=== PATIENT | female | born 1955 | race Caucasian/White ===

== ENCOUNTER 2017-01-06 14:40 | Emergency (ER) | payer MEDICARE ==
[~2017-01-06] VITALS: Ht 160 cm; Wt 83.0 kg
[~2017-01-06 14:40] MED LIST: CLAR5TAB PO; LEVO.1 PO; METF1000 PO; METH500T3 PO; PANT40TA3 PO; TRAM50TA PO
[2017-01-06 14:43] VITALS: BP 189/91; PULSE 95; RESP 20; TEMP 98.8; O2SAT 97
--- NOTE | 2017-01-06 14:51 | PD ---
Physical Exam Time Seen by Provider: 14:50 Narrative 61yo F c/o chest pain/pressure and SOB since Tuesday. Sent by communication center operator. Hx of asthma. Denies hemoptysis. Denies hx of DVT/PE. Patient seen in triage. Awaiting bed placement. VS reviewed. Data Data Last Documented VS Vital Signs Date Time Temp Pulse Resp B/P Pulse Ox O2 Delivery O2 Flow Rate FiO2 01/06/17 14:43 98.8 95 20 189/91 97 Orders Electrocardiogram (01/06/17 14:44) Complete Blood Count With Diff (01/06/17 14:44) Basic Metabolic Panel (Bmp) (01/06/17 14:44) Ckmb (Isoenzyme) Profile (01/06/17 14:44) Troponin I (01/06/17 14:44) Chest, Single Ap (01/06/17 14:44) Iv Access Insert/Monitor (01/06/17 14:44) Ecg Monitoring (01/06/17 14:44) Oxygen Administration (01/06/17 14:44) Oximetry (01/06/17 14:44) MDM Supervised Visit with IAN: Glenys Angel January 06, 2017 14:51
--- NOTE | 2017-01-06 15:21 | RADRPT ---
EXAM DATE/TIME: 01/06/2017 15:15 [facility] COMPARISON: No previous studies available for comparison. INDICATIONS : Chest pain and short of breath for 5 days. MEDICAL HISTORY : Carcinoma, pancreas. SURGICAL HISTORY : Splenectomy. ENCOUNTER: Initial ACUITY: 4 - 6 days PAIN SCORE: 9/10 LOCATION: Bilateral chest FINDINGS: PA and lateral views of the chest demonstrate the lungs to be symmetrically aerated without evidence of mass, infiltrate or effusion. The cardiomediastinal contours are unremarkable. Osseous structure s are intact. CONCLUSION: Normal examination. Clem Calles MD on January 06, 2017 at 15:19 Board Certified Radiologist. This report was verified electronically.
[2017-01-06] MEDS ORDERED: SODIUM CHLOR 0.9% 1000 ML INJ 1,000 ML IV SCH (16:03)
[2017-01-06] MEDS ORDERED: ONDANSETRON HCL 4 MG/2 ML VIAL IVP ONE (16:15)
[2017-01-06] MEDS ORDERED: LIDOCAINE VISCOUS 2% SOLN 15 ML UDC PO ONE (16:15)
[2017-01-06] MEDS ORDERED: PANTOPRAZOLE SODIUM 40 MG VIAL IVP ONE (16:15)
[2017-01-06] MEDS ORDERED: SODIUM CHLORIDE 0.9% FLUSH 10 ML FLUSH IV FLUSH PRN (16:15)
[2017-01-06] MEDS ORDERED: ALUMINUM/MAGNESIUM/SIMETH 30 ML CUP PO ONE (16:15)
[2017-01-06] MEDS ORDERED: MORPHINE SULFATE 4 MG/ML INJ IV PUSH ONE (16:15)
--- NOTE | 2017-01-06 17:20 | PD ---
HPI Chief Complaint: Chest Pain Time Seen by Provider: 16:00 Travel History International Travel<30 days: No Contact w/Intl Traveler<30days: No Traveled to known affect area: No History of Present Illness HPI 61-year-old female presents the emergency department with 4 day history of pleuritic chest pain radiating to her back. Patient has had lower extremity cramping as well. Patient has history of pancreatic cancer surgically removed, and followed by Dr. Barrios, and asthma for which she sees a economic development specialist. Patient was referred to the ED by her economic development specialist with her history of pleuritic chest pain for the past 4 days. Denies fever, chills, productive cough, nausea, vomiting, or diarrhea. Pain is constant and not significantly worse with exertion or with eating. She has no urinary symptoms. She is allergic to Compazine. PFSH Past Medical History Cancer: Yes (pancreatic cancer) Diabetes: Yes Patient Takes Glucophage: Yes Fibromyalgia: Yes Herniated Disk: Yes Hypertension: Yes Neurologic: Yes (neuropathy) Respiratory: Yes (asthma) Triglycerides - High: Yes Tetanus Vaccination: > 5 Years Influenza Vaccination: No ?: Not : 3 Para: 3 Past Surgical History Appendectomy: Yes Cholecystectomy: Yes Hysterectomy: Yes Social History Alcohol Use: Yes (occ) Tobacco Use: No Substance Use: No Allergies-Medications (Allergen,Severity, Reaction): Coded Allergies: Compazine (Verified Allergy, Unknown, 01/06/17) Reported Meds & Prescriptions Reported Meds & Active Scripts Active Reported Desloratadine 5 Mg Tab 5 Mg PO DAILY Levothyroxine (Levothyroxine Sodium) 100 Mcg Tab 100 Mcg PO DAILY Tramadol (Tramadol HCl) 50 Mg Tab 50-100 Mg PO BID PRN Pantoprazole (Pantoprazole Sodium) 40 Mg Tab 40 Mg PO DAILY Robaxin (Methocarbamol) 500 Mg Tab 500 Mg PO QID PRN Breo Ellipta Inh (Fluticasone/Vilanterol) 100-25 Mcg/Act Inh 1 Puff INH DAILY PRN Use daily at the same time. [Metformin] Review of Systems Except as stated in HPI: all other systems reviewed are Neg General / Constitutional: No: Fever Eyes: No: Visual changes HENT: No: Headaches Cardiovascular: Positive: Chest Pain or Discomfort, No: Irregular Rhythm, Tachycardia, Diaphoresis, Syncope, Dyspnea on exertion, Edema Respiratory: Positive: Pleuritic Pain, No: Cough, Shortness of Breath, Wheezing, Sneezing Gastrointestinal: No: Nausea, Vomiting, Diarrhea, Abdominal Pain Genitourinary: No: Dysuria Musculoskeletal: Positive: Cramping, No: Edema, Pain Skin: No Rash Neurologic: No: Weakness Psychiatric: No: Depression Endocrine: No: Polydipsia Hematologic/Lymphatic: No: Easy Bruising Physical Exam Narrative GENERAL: Patient appears in moderate distress. SKIN: Warm and dry. Normal color. Normal turgor. HEAD: Atraumatic. Normocephalic. EYES: Pupils equal and round. No scleral icterus. No injection or drainage. ENT: No nasal bleeding or discharge. Mucous membranes pink and moist. Pharynx is clear. Airway is patent. NECK: Trachea midline. No JVD. Supple nontender. CARDIOVASCULAR: Regular rate and rhythm. No murmurs gallops or rubs. RESPIRATORY: No accessory muscle use. Clear to auscultation. Breath sounds equal bilaterally. Patient has pain with palpation along the anterior chest wall. GASTROINTESTINAL: Abdomen soft, mild to moderate epigastric and right upper quadrant tenderness, nondistended. Hepatic and splenic margins not palpable. No CVA tenderness. MUSCULOSKELETAL: Extremities without clubbing, cyanosis, or edema. No obvious deformities. Both lower extremities are tender with palpation in the calf with positive Homans sign present. Strength is intact bilaterally. Neurovascular exam is unremarkable. NEUROLOGICAL: Awake and alert. No obvious cranial nerve deficits. Motor grossly within normal limits. Five out of 5 muscle strength in the arms and legs. Normal speech. PSYCHIATRIC: Appropriate mood and affect; insight and judgment normal. Data Data Last Documented VS Vital Signs Date Time Temp Pulse Resp B/P Pulse Ox O2 Delivery O2 Flow Rate FiO2 01/06/17 20:01 64 18 195/85 97 01/06/17 18:10 Room Air 01/06/17 14:43 98.8 Orders Electrocardiogram (01/06/17 14:44) Complete Blood Count With Diff (01/06/17 14:44) Ckmb (Isoenzyme) Profile (01/06/17 14:44) Troponin I (01/06/17 14:44) Iv Access Insert/Monitor (01/06/17 14:44) Ecg Monitoring (01/06/17 14:44) Oxygen Administration (5/18/17 14:44) Oximetry (01/06/17 14:44) Chest, Pa & Lat (01/06/17 14:44) Lipase (01/06/17 16:03) Lactic Acid (01/06/17 16:03) Urinalysis - C+S If Indicated (01/06/17 16:03) NPO (01/06/17 16:03) Morphine Inj (Morphine Inj) (01/06/17 16:15) Ondansetron Inj (Zofran Inj) (01/06/17 16:15) Pantoprazole Inj (Protonix Inj) (01/06/17 16:15) Sodium Chlor 0.9% 1000 Ml Inj (Ns 1000 M (01/06/17 16:03) Sodium Chloride 0.9% Flush (Ns Flush) (01/06/17 16:15) Al-Mag Hy-Si 40-40-4 Mg/Ml Liq (Mag-Al P (01/06/17 16:15) Lidocaine 2% Viscous (Xylocaine 2% Visco (01/06/17 16:15) Comprehensive Metabolic Panel (01/06/17 16:03) Us Leg Venous Doppler Bilat (01/06/17 16:03) CKMB (01/06/17 14:44) CKMB% (01/06/17 14:44) Ventilation & Perfusion Scan (01/06/17 ) Ketorolac Inj (Toradol Inj) (01/06/17 19:45) Dexamethasone Inj (Decadron Inj) (01/06/17 22:30) Labs Laboratory Tests Test 01/06/17 01/06/17 01/06/17 14:44 16:25 17:00 Total Creatine Kinase 119 U/L Creatine Kinase MB 0.9 NG/ML Troponin I LESS THAN 0.02 NG/ML Urine Color LIGHT-YELLOW Urine Turbidity CLEAR Urine pH 7.5 Urine Specific [place] 1.006 Urine Protein NEG mg/dL Urine Glucose (UA) NEG mg/dL Urine Ketones NEG mg/dL Urine Occult Blood NEG Urine Nitrite NEG Urine Bilirubin NEG Urine Urobilinogen LESS THAN 2.0 MG/DL Urine Leukocyte Esterase NEG Urine RBC 2 /hpf Urine WBC LESS THAN 1 /hpf Urine Squamous Epithelial 1 /hpf Cells Urine Bacteria OCC /hpf Microscopic Urinalysis Comment CULT NOT INDICATED Sodium Level 140 MEQ/L Potassium Level 3.9 MEQ/L Chloride Level 102 MEQ/L Carbon Dioxide Level 25.7 MEQ/L Anion Gap 12 MEQ/L Blood Urea Nitrogen 8 MG/DL Creatinine 0.68 MG/DL Estimat Glomerular Filtration 88 ML/MIN Rate Random Glucose 109 MG/DL Lactic Acid Level 0.9 mmol/L Calcium Level 9.6 MG/DL Total Bilirubin 0.4 MG/DL Aspartate Amino Transf 32 U/L (AST/SGOT) Alanine Aminotransferase 40 U/L (ALT/SGPT) Alkaline Phosphatase 113 U/L Total Protein 8.2 GM/DL Albumin 3.8 GM/DL Lipase 141 U/L White Blood Count 16.0 TH/MM3 Red Blood Count 4.93 MIL/MM3 Hemoglobin 14.5 GM/DL Hematocrit 44.3 % Mean Corpuscular Volume 89.9 FL Mean Corpuscular Hemoglobin 29.4 PG Mean Corpuscular Hemoglobin 32.7 % Concent Red Cell Distribution Width 14.6 % Platelet Count 393 TH/MM3 Mean Platelet Volume 9.2 FL Neutrophils (%) (Auto) 55.7 % Lymphocytes (%) (Auto) 33.2 % Monocytes (%) (Auto) 7.2 % Eosinophils (%) (Auto) 2.9 % Basophils (%) (Auto) 1.0 % Neutrophils # (Auto) 8.9 TH/MM3 Lymphocytes # (Auto) 5.3 TH/MM3 Monocytes # (Auto) 1.2 TH/MM3 Eosinophils # (Auto) 0.5 TH/MM3 Basophils # (Auto) 0.2 TH/MM3 CBC Comment AUTO DIFF Differential Total Cells 100 Counted Neutrophils % (Manual) 54 % Band Neutrophils % 3 % Lymphocytes % 28 % Monocytes % 11 % Eosinophils % 4 % Neutrophils # (Manual) 9.1 TH/MM3 Differential Comment FINAL DIFF MANUAL Platelet Estimate NORMAL Platelet Morphology Comment NORMAL Spherocytes 1+ Target Cells 1+ MDM Medical Decision Making Medical Screen Exam Complete: Yes Emergency Medical Condition: Yes Medical Record Reviewed: Yes Differential Diagnosis Pleuritic chest pain. Epigastric pain. Right upper quadrant pain. Lower extremity pain. DVT. Possible PE. GERD. Pancreatitis. Narrative Course Patient is medically stable at time of exam. Labs ordered including CBC, CMP, lipase, lactic acid. Coagulation studies, analysis. Chest x-ray shows no acute process. EKG shows Ultrasound of both lower extremities showed no acute DVT. Radiologist. CTA is ordered. CBC shows slight leukocytosis of 16.0. CMP is unremarkable, lactic acid is 0.9. Lipase is 141. Urinalysis is unremarkable. Patient is Morphine 4 mg IV as well as 40 MG IV PANTOPRAZOLE 40 MG IV AND GI COCKTAIL. Patient is given thousand mL of normal saline bolus. 1930 hrs. patient is reassessed and felt to have no improvement in her pain. Patient reports that she has allergy to IV contrast, and the patient was discussed with Dr. Aceves who took over for Dr. Faustin at 1900 hrs., and he recommended a VQ scan rather than CT. Patient is given 30 mg Toradol IV for pain. Patient did have some relief with the Toradol IV, and VQ scan was low suspicion for PE. Patient is felt to have chest wall pain similar to costochondritis. Patient is given 10 mg Decadron IV. Patient will be continued on prednisone taper pack as prescribed. Patient is also given Lortab 5/325 one to 2 tabs every 6 hours when necessary pain #20. Diagnosis Primary Impression: Anterior chest wall pain Referrals: Primary Care Physician Patient Instructions: Costochondritis (ED), General Instructions, Narcotic given in the ED Additional Instructions: Patient is given 30 mg Toradol IV for pain. Patient did have some relief with the Toradol IV, and VQ scan was low suspicion for PE. Patient is felt to have chest wall pain similar to costochondritis. Patient is given 10 mg Decadron IV. Patient will be continued on prednisone taper pack as prescribed. Patient is also given Lortab 5/325 one to 2 tabs every 6 hours when necessary pain #20. Patient should follow with her primary care physician in the next several days. Patient should return the emergency Department with worsening symptoms if necessary. Med/Other Pt SpecificInfo: Prescription(s) given Disposition: DISCHARGE HOME Condition: Stable Jun Bird January 06, 2017 17:20
[2017-01-06 17:38] LABS: BACTERIA, URINE OCC /hpf; BLOOD, URINE NEG (NEG); GLUCOSE,URINE NEG (NEG); KETONE, URINE NEG (NEG); NITRITE,URINE NEG (NEG); PH, URINE 7.5 (5.0-8.5); SQUAMOUS EPITHELIAL CELL URINE 1 /hpf (0-5); URINE COLOR LIGHT-YELLOW (YELLW/STRAW)
[2017-01-06 17:44] LABS: COMMENT (UR) CULT NOT INDICATED; CULTURE IF INDICATED CULT NOT INDICATED
[2017-01-06 17:53] LABS: ALKALINE PHOSPHATASE 113 U/L (45-117); ALT (GPT) 40 U/L (10-53); ANION GAP 12 MEQ/L (5-15); AST (GOT) 32 U/L (15-37); BICARBONATE 25.7 MEQ/L (21.0-32.0); BLOOD UREA NITROGEN 8 MG/DL (7-18); CHLORIDE 102 MEQ/L (98-107); GLOMERULAR FILTRATION RATE 88 ML/MIN (>89); POTASSIUM 3.9 MEQ/L (3.5-5.1); SODIUM (NA) 140 MEQ/L (136-145); TOTAL BILIRUBIN ADULT 0.4 MG/DL (0.2-1.0)
--- NOTE | 2017-01-06 18:04 | RADRPT ---
EXAM DATE/TIME: 01/06/2017 17:13 [facility] COMPARISON: No previous studies available for comparison. INDICATIONS : Bilateral leg pain. MEDICAL HISTORY : Carcinoma, pancreas. Peripheral vascular disease. Neuorpathy. Hyperlipidemia. HTN. Asthma. Fibromya lgia. Herniated disk. Diabetes. SURGICAL HISTORY : Cholecystectomy.Hysterectomy. Pancreatic cancer removed. Partial splenectomy. ENCOUNTER: Initial ACUITY: 2 day PAIN SCORE: 10/10 LOCATION: Bilateral leg. TECHNIQUE: Venous ultrasound of the left and right leg was performed from the inguinal ligament to the proximal calf. Real-time, color Doppler and spectral tracing, compression and augmentation techniques were us ed. FINDINGS: RIGHT LEG: There is normal compressibility of the deep venous system from the inguinal region to the proximal ca lf. No echogenic clot is seen in the lumen of the common femoral, femoral, popliteal, and posterior tibial veins. There is a normal response of the venous system to proximal and distal augmentation an d respiration. LEFT LEG: There is normal compressibility of the deep venous system from the inguinal region to the proximal ca lf. No echogenic clot is seen in the lumen of the common femoral, femoral, popliteal, and posterior tibial veins. There is a normal response of the venous system to proximal and distal augmentation an d respiration. CONCLUSION: Normal examination. Clem Calles MD on January 06, 2017 at 18:03 Board Certified Radiologist. This report was verified electronically.
[2017-01-06 18:10] VITALS: BP 174/73; PULSE 61; O2SAT 96
[2017-01-06 18:12] LABS: AUTOMATED NEUTROPHIL # 8.9 TH/MM3 (1.8-7.7); BASOPHIL # 0.2 TH/MM3 (0-0.2); EOSINOPHIL # 0.5 TH/MM3 (0-0.4); EOSINOPHIL % 2.9 % (0.0-4.0); HEMATOCRIT 44.3 % (35.0-46.0); LYMPH % 33.2 % (9.0-44.0); LYMPHOCYTE # 5.3 TH/MM3 (1.0-4.8); MEAN CELL VOLUME 89.9 FL (80.0-100.0); MEAN CORPUSCULAR HEMOGLOBIN 29.4 PG (27.0-34.0); MEAN CORPUSCULAR HGB CONC 32.7 % (32.0-36.0); MONO % 7.2 % (0.0-8.0); NEUT % 55.7 % (16.0-70.0); PLATELET COUNT 393 TH/MM3 (150-450); RED BLOOD COUNT 4.93 MIL/MM3 (4.00-5.30); RED CELL DISTRIBUTION WIDTH 14.6 % (11.6-17.2)
[2017-01-06 18:14] LABS: HEMO FLAGS AUTO DIFF
[2017-01-06 18:51] LABS: CREATINE KINASE 119 U/L (26-192)
[2017-01-06 18:54] LABS: BANDS 3 % (0-6); EOSINOPHILS 4 % (0-4); NEUTROPHIL # MANUAL DIFF 9.1 TH/MM3 (1.8-7.7); POLYS (SEG NEUTROPHILS) 54 % (16-70); WBC DIFF SAMPLE 100
[2017-01-06 18:56] LABS: PLATELET ESTIMATE SMEAR NORMAL (NORMAL); PLATELET MORPHOLOGY NORMAL (NORMAL); SCAN/DIFF FINAL DIFF MANUAL; SPHEROCYTES 1+ (NORMAL); TARGET CELLS 1+ (NORMAL)
[2017-01-06 19:03] LABS: CKMB 0.9 NG/ML (0.5-3.6)
[2017-01-06] MEDS ORDERED: KETOROLAC TROMETHAMINE 30 MG/ML (IVP) VIAL IV PUSH ONE (19:45)
[2017-01-06 20:01] VITALS: BP 195/85; PULSE 64; RESP 18; O2SAT 97
[2017-01-06] MEDS ORDERED: FLUT1INH INH (20:28)
[2017-01-06] MEDS ORDERED: DESL5TAB4 PO (20:28)
[2017-01-06] MEDS ORDERED: LEVO100T5 PO (20:28)
[2017-01-06] MEDS ORDERED: PANT40TA3 PO (20:28)
[2017-01-06] MEDS ORDERED: TRAM50TA PO (20:28)
[2017-01-06] MEDS ORDERED: METFORMIN (20:28)
[2017-01-06] MEDS ORDERED: ROBA500T PO (20:28)
[2017-01-06 21:30] VITALS: BP 141/67; PULSE 60; RESP 18; O2SAT 97
--- NOTE | 2017-01-06 22:16 | RADRPT ---
EXAM DATE/TIME: 01/06/2017 21:43 [facility] COMPARISON: CHEST PA & LAT, January 06, 2017, 15:15. INDICATIONS : Shortness of breath with chest pain for four days. DOSE: 8.7 mCi Tc99m MAA IV 0.80 mCi Tc99m DTPA aerosol MEDICAL HISTORY : Carcinoma, pancreas. Diabetes mellitus type 2. SURGICAL HISTORY : Appendectomy. Hysterectomy. Cholecystectomy. ENCOUNTER: Initial ACUITY: 4 - 6 days PAIN SCALE: 5/10 LOCATION: chest TECHNIQUE: Following five minutes of tidal breathing of DTPA aerosol, planar images of the lungs were performed in eight projections. The patient was then injected with MAA, and eight-view perfusion scan was perf ormed. FINDINGS: There is a homogeneous pattern of aerosol delivery to the periphery of both lungs. No focal ventilat ory defects are seen. The perfusion lung scan demonstrates a homogenous pattern of uptake in both lungs. No segmental or s ubsegmental defects are seen. CONCLUSION: Low probability for pulmonary embolism.. José Miguel Archer MD FACR on January 06, 2017 at 22:14 Board Certified Radiologist. This report was verified electronically.
[2017-01-06] MEDS ORDERED: PRED10PA2 PO (22:29)
[2017-01-06] MEDS ORDERED: HYDR-3533 PO (22:29)
[2017-01-06 22:30] VITALS: BP 140/66; PULSE 66; RESP 18; O2SAT 97
[2017-01-06] MEDS ORDERED: DEXAMETHASONE SOD PHOS 20 MG/5 ML VIAL IV PUSH ONE (22:30)
[2017-01-06 23:41] VITALS: BP 158/88
--- NOTE | 2017-01-07 21:46 | EKG ---
Date Performed: 01/06/2017 Time Performed: 15:24:15 PTAGE: 61 years EKG: Sinus rhythm NORMAL ECG NO PREVIOUS TRACING DOCTOR: Anthony Barnard Interpretating Date/Time 01/07/2017 21:45:12
== END 2017-01-07 00:24 | disposition home or self-care (01) ==
LOC: NEPC 14:40 → MERGE 14:40 → NEPC 01-07 00:24
DX: R07.89 Other chest pain (principal); R25.2 Cramp and spasm; D72.829 Elevated white blood cell count, unspecified; E11.9 Type 2 diabetes mellitus without complications; I10 Essential (primary) hypertension; E78.1 Pure hyperglyceridemia; Z79.84 Long term (current) use of oral hypoglycemic drugs; Z85.07 Personal history of malignant neoplasm of pancreas; Z87.09 Personal history of other diseases of the respiratory system; Z87.39 Personal history of other diseases of the musculoskeletal system and connective tissue; Z86.69 Personal history of other diseases of the nervous system and sense organs
CPT/HCPCS: 71020; 78582; 80053; 81001; 82550; 82552; 83605; 83690; 84484; 85007; 85027; 93005; 93970; 96374; 96375; 99285; A9540; A9567; C9113; J1100; J1885; J2270; J2405; J7030

== ENCOUNTER 2017-07-01 08:02 | Inpatient (IN) | payer MEDICARE ==
[~2017-07-01] VITALS: Ht 157.5 cm; Wt 83.5 kg
[2017-07-01] VITALS (8 sets, daily range): BP systolic 147–173; BP diastolic 71–99; PULSE 65–100; RESP 18–22; TEMP 98–98.7; O2SAT 94–99
[~2017-07-01 08:02] MED LIST changes: +DESL5TAB4 PO; +FLUT1INH INH; +HYDR-3533 PO; +LEVO100T5 PO; +METFORMIN; +PRED10PA2 PO; +ROBA500T PO
[2017-07-01] MEDS: NS 1000P @30 MLS/HR (KVO) IV SCH (09:00)
[2017-07-01] MEDS ORDERED: methylPREDNISolone SOD SUCC 125 MG/2 ML VIAL IV PUSH ONE (09:00)
[2017-07-01] MEDS ORDERED: FAMOTIDINE 20 MG/2 ML VIAL IV PUSH ONE (09:00)
[2017-07-01] MEDS ORDERED: diphenhydrAMINE HCL 50 MG/ML VIAL IV PUSH ONE ×2 (09:00→15:15)
[2017-07-01 09:48] LABS: BASOPHIL # 0.2 TH/MM3 (0-0.2); BASOPHIL % 1.5 % (0.0-2.0); EOSINOPHIL # 0.4 TH/MM3 (0-0.4); EOSINOPHIL % 3.3 % (0.0-4.0); HEMATOCRIT 43.3 % (35.0-46.0); HEMO FLAGS DIFF FINAL; LYMPH % 33.2 % (9.0-44.0); LYMPHOCYTE # 4.2 TH/MM3 (1.0-4.8); MEAN CELL VOLUME 90.3 FL (80.0-100.0); MEAN CORPUSCULAR HEMOGLOBIN 30.6 PG (27.0-34.0); MEAN CORPUSCULAR HGB CONC 33.8 % (32.0-36.0); MONO % 7.6 % (0.0-8.0); NEUT % 54.4 % (16.0-70.0); PLATELET COUNT 384 TH/MM3 (150-450); RED BLOOD COUNT 4.79 MIL/MM3 (4.00-5.30); RED CELL DISTRIBUTION WIDTH 14.7 % (11.6-17.2); WHITE BLOOD COUNT 12.8 TH/MM3 (4.0-11.0)
[2017-07-01] MEDS ORDERED: CLAR10CA3 PO (09:49)
[2017-07-01] MEDS ORDERED: VITATAB43 PO (09:49)
[2017-07-01] MEDS ORDERED: GABA300C5 PO (09:49)
[2017-07-01] MEDS ORDERED: LEVO75TA3 PO (09:49)
[2017-07-01] MEDS ORDERED: NIAC500T5 PO (09:49)
[2017-07-01] MEDS ORDERED: DULO1CAP2 PO (09:49)
[2017-07-01] MEDS ORDERED: CALC1TAB12 PO (09:49)
[2017-07-01] MEDS ORDERED: ALBUAER3 INH (09:49)
[2017-07-01] MEDS ORDERED: TIOT1AER2 INH (09:49)
[2017-07-01] MEDS ORDERED: benadryl P-ARTICULR (09:49)
[2017-07-01] MEDS ORDERED: NITR1SUB3 SL (09:49)
[2017-07-01 10:00] LABS: APTT (PATIENT) 26.8 SEC (24.3-30.1); PROTHROMBIN TIME - PATIENT 10.5 SEC (9.8-11.6)
[2017-07-01 10:06] LABS: BICARBONATE 27.6 MEQ/L (21.0-32.0)
[2017-07-01 10:08] LABS: POTASSIUM 4.2 MEQ/L (3.5-5.1)
[2017-07-01] MEDS ORDERED: diphenhydrAMINE HCL 50 MG/ML VIAL ONE (12:44)
[2017-07-01] MEDS ORDERED: FAMOTIDINE 20 MG/2 ML VIAL ONE (12:44)
[2017-07-01] MEDS ORDERED: methylPREDNISolone SOD SUCC 125 MG/2 ML VIAL ONE (12:44)
[2017-07-01] MEDS ORDERED: HEPARIN-NS/PF INJ 500 ML ONE (12:57)
[2017-07-01] MEDS ORDERED: NITROGLYCERIN INJ 5 ML ONE (12:58)
[2017-07-01] MEDS ORDERED: VERAPAMIL HCL 5 MG/2 ML VIAL ONE (12:58)
[2017-07-01] MEDS ORDERED: MIDAZOLAM HCL 2 MG/2 ML VIAL ONE (12:58)
[2017-07-01] MEDS ORDERED: HEPARIN SODIUM - IV 10,000 UNITS/10 ML VIAL ONE (12:58)
[2017-07-01] MEDS ORDERED: hydrALAZINE HCL 20 MG/ML VIAL ONE (13:22)
[2017-07-01] MEDS ORDERED: LABETALOL HCL 100 MG/20 ML VIAL ONE (13:30)
--- NOTE | 2017-07-01 14:21 | CATHPROC ---
[facility] HIS Report Study Information Study Number Admission Scheduled Start Study Start [id number] Jul 01 2017 8:02AM 07/01/2017 Jul 01 2017 12:43PM Boss Service Cardiac Catheterization Admit Source Facility Department Other [facility] - Scudding Inspector Physician and Clinical Staff Initial Ronal Buckley Varnish Melter Sophie Tejeda RN Varnish Melter Mari Jackson BSRN Recorder Brandon Aldrich,RT(R) ScrJoaquina ColesRT(R) (BS) Procedures Performed Procedure Location (Site) Vessel Name Coronary Angiograms LCA Left Coronary Coronary Angiograms RCA Right Coronary L Heart Cath Wire insertion Radial (right) Radial Art. Equipment Time Painter Sign Maintenance Description Size Mfg Part Number Used/Scraped TRANSDUCER, TRUWAVE [id number] 13:01 Smartaxi * Used W/STOCKCOCK *[id number] *[id number] *[id number] 13:01 Ravn PACK, CCL CUSTOM * Used *[id number] 13:01 Ravn SUPPORT, ARTERIAL ADULT [id number] *[id number] Used BAND, RADIAL COMPRESSION TR [id number] 14:01 [employer]ron[employer] MEDICAL 24CM Used SHORT 24 *[id number] 13:01 [employer] WIRE, EXCHANGE 260CM 3MMJ 260CM Used *[id number] 13:01 NAMIC MANIFOLD, 4 PORT * Used *[id number] 13:01 NYCOMED OMNIPAQUE, 350 MG, 150ML 150ML [id number] Used [id number] 13:01 [employer] MED[employer] BLANKET,WARM AIR CCL * Used *[id number] SHEATH, FR6 TRANSRADIAL [id number] 13:01 VENNCOMM FR 6 Used SLENDER 10CM *[id number] History: Current Medications Medication Dosage/Unit Route Frequency Last Date/Time Taken Glucophage History: Allergies Allergy Reaction No Known Allergies Compazine prochlorperazine morphine Hives latex Hives shellfish derived lock jaw isosorbide History: Risk Factors Family History of Hypertension Dyslipidemia Previous MN Previous Heart Failure Premature CAD Yes Yes No No No Prior Valve Prior PCI Prior CABG Surgery No No No Cerebrovascular Peripheral Artery Chronic Lung On Dialysis Diabetes Diabetes Therapy Disease Disease Disease No No Yes Yes Yes Oral History: Symptoms/Diagnosis Selection Items Angina-unstable Chest pain History: Stress Tests Stress or Imaging Studies Performed Yes Standard Exercise Stress Test No Stress Echo No Stress Test SPECT Stress Test SPECT Result Yes Negative Stress Test CMR No Cardiac CTA Coronary Calcium Score No No History: Other Disease Selection Items HTN History: Other Current Smoker No Labs Hgb (g/dl) Hct (%) RBC (MIL/MM3) WBC (l/cumm) Platelets (thousands) 11.60-17.00 35.00-51.00 4.00-5.90 4.00-11.00 150.00-450.00 14.6 43.3 4.7 12.8 384 Glucose (mg/dl) BUN (mg/dl) Creatinine (mg/dl) BUN:Creatinine (1:x) 74.00-106.00 7.00-18.00 0.50-1.30 10.00-20.00 211 11 0.7 15.7 Na (meq/l) K (meq/l) Cl (meq/l) CO2 (mmol/L) Ca (mg/dl) 136.00-145.00 3.50-5.10 98.00-107.00 21.00-32.00 8.50-10.10 136 4.2 101 27.6 8.9 PT (sec) PTT (sec) INR (PTT:PT) 9.80-11.60 24.30-30.10 0.90-1.10 10.5 26.8 1 CPK-MB (ng/ML) 0.50-3.60 Not Drawn Medication Medication Total Dose (Bolus/Oral) Medication Total Dosage/Unit 1% XYLOCAINE 5 mL BENADRYL 25 mg FENTANYL 25 mcg HYDRALAZINE 10 mg LABETOLOL 10 mg PEPCID 20 mg RADIAL COCKTAIL 5 mL (Bolus) SOLU-MEDROL 125 mg VERSED 1 mg Medications (Bolus/Oral) Medication Time Given Dosage/Unit Administered By Reason 07/01/2017 12:49:13 SOLU-MEDROL 125 mg Sophie Tejeda PM 125 mg SOLU-MEDROL given in lab by Sophie Tejeda RN in Left Antecubital via Peripheral IV. 07/01/2017 12:54:15 BENADRYL 25 mg Sophie Tejeda PM 25 mg BENADRYL given in lab by Sophie Tejeda, EARLINE via Peripheral IV. PEPCID 07/01/2017 1:02:14 PM 20 mg Sophie Tejeda 20 mg PEPCID given in lab by Sophei Tejeda, RN in Left Antecubital via Peripheral IV. 1% XYLOCAINE 07/01/2017 1:11:21 PM 5 mL Ronal Aceves 5 mL 1% XYLOCAINE given in lab by Ronal Aceves in Right Radial via Subcutaneous. VERSED 07/01/2017 1:11:23 PM 0.5 mg Rittenour, Mari 0.5 mg VERSED given in lab by Mari Jackson BSRN in Left Antecubital via Peripheral IV. FENTANYL 07/01/2017 1:11:25 PM 25 mcg Renetta, Mari 25 mcg FENTANYL given in lab by Mari Jackson BSRN in Left Antecubital via Peripheral IV. Ntg 200mcg Verapamil 2.5mg Heparin RADIAL COCKTAIL 07/01/2017 1:14:17 PM 5 mL (Bolus) Ronal Aceves 2000U 5 mL (Bolus) RADIAL COCKTAIL given in lab by Ronal Aceves via Radial. Using [Solution Name]. R damaris: Ntg 200mcg Verapamil 2.5mg Heparin 3300U. HYDRALAZINE 07/01/2017 1:23:23 PM 10 mg Rittenour, Mari 10 mg HYDRALAZINE given in lab by Mari Jackson BSRN in Left Antecubital via Peripheral IV. VERSED 07/01/2017 1:26:31 PM 0.5 mg Rittenour, Mari 0.5 mg VERSED given in lab by Mari Jackson BSRN in Left Antecubital via Peripheral IV. LABETOLOL 07/01/2017 1:31:27 PM 10 mg Rittenour, Mari 10 mg LABETOLOL given in lab by Mari Jackson BSRN in Left Antecubital via Peripheral IV. Medication (Drip) Medication Time Given Dosage/Unit Concentration/Unit Diluent (ml) Solution 07/01/2017 12:50:38 IV Solutions 0 mL (IV) 500 NaCl .9 PM IV Solutions given in lab by Mari Jackson BSRN in Left Antecubital via Peripheral IV. Pump/Drip Flow = 20 ml/hr using NaCl .9. NITROGLYCERIN DRIP 07/01/2017 1:43:13 PM 20 mcg/min 50 mg 250 D5W 20 mcg/min NITROGLYCERIN DRIP given in lab by Mari Jackson BSRN in Left Antecubital via Peripher al IV. Pump/Drip Flow = 6 ml/hr using D5W with a concentration of 50 mg in 250 ml. NITROGLYCERIN DRIP 07/01/2017 1:49:47 PM 40 mcg/min 50 mg 250 D5W 40 mcg/min NITROGLYCERIN DRIP given in lab by Mari Jackson BSRN via Peripheral IV. Pump/Drip Sebastien w = 12 ml/hr using D5W with a concentration of 50 mg in 250 ml. nitro turned up to 40 mcg NITROGLYCERIN DRIP 07/01/2017 1:51:49 PM 520 mcg/min 50 mg 250 D5W 520 mcg/min NITROGLYCERIN DRIP given in lab by Mari Jackson BSRN via Peripheral IV. Pump/Drip Fl ow = 156 ml/hr using D5W with a concentration of 50 mg in 250 ml. nitro turned up to 50 mcg NITROGLYCERN DRIP 07/01/2017 2:02:10 PM 0 units/hr 0 STOPPED 0 units/hr NITROGLYCERN DRIP STOPPED given in lab by Mari Jackson BSRN. Pump/Drip Flow = 0 ml/hr using [Solution Name]. Initial Case Assessment Cardiovascular HR Rhythm NIBP Chest Pain 81 Sinus 195/107 7 Edema Present Skin color Skin None Normal Warm Dry Circulatory - Right Pulses Dorsalis Pedis Femoral 2 1 Scale (0,1,2,3,4,d) Circulatory - Left Pulses Dorsalis Pedis Femoral 2 Scale (0,1,2,3,4,d) Neurological State Oriented to time-place- Alert Moves all extremities person Respiration - General Respiration Rate SpO2 (%) O2 (lpm) (B/min) 20 93 0 Final Case Assessment Cardiovascular HR Rhythm NIBP Chest Pain 72 Sinus 127/72 8 Edema Present Skin color Skin None Normal Warm Dry Circulatory - Right Pulses Dorsalis Pedis Femoral Radial 2 2 2 Scale (0,1,2,3,4,d) Scale (0,1,2,3,4,d) Neurological State Oriented to time-place- Alert Moves all extremities person Respiration - General Respiration Rate SpO2 (%) O2 (lpm) (B/min) 18 92 0 Chronological Log Time Study Chronological Log 12:43:50 Patient arrived via Bed. 12:43:51 Patient Name, D.O.B, / Armband Verified By R.N. 12:43:52 Consent signed by the physician and the patient and verified by the Scudding Inspector staff. 12:49:13 125 mg SOLU-MEDROL given in lab by Sophie Tejeda, RN in Left Antecubital via Peripheral I V. 12:50:21 A # 22 IV was noted in the Antecubital (left). Grade = 0 IV Solutions given in lab by Mari Jackson BSRN in Left Antecubital via Peripheral IV. Pump /Drip Flow = 20 ml/hr 12:50:38 using NaCl .9. 12:52:56 Pre-op and post- op instructions given; patient acknowledges understanding of instructions. 12:52:57 Verbal Stimulation=2 Physical Stimulation=2 Airway=2 Respiration=2 TOTAL=8. (0=absent, 1=li mited, 2=present) 12:53:08 Presedation assessment performed by Scudding Inspector RN. 12:54:15 25 mg BENADRYL given in lab by Sophie Tejeda, RN via Peripheral IV. 12:55:04 Allens test performed on the right radial and ulnar artery. 12:55:09 Patient has been NPO for More than 6Hrs. 12:55:09 Skin Breakdown- none per patient. 12:55:18 Patient Warmer Placed on the Table. 12:55:19 Mary Prominences Protected Vitals capture started with the following parameters, Patient=Adult, Interval=5 min, Initial Pr bvzsvc=659 mmHg, 12:55:28 Deflation Rate=5 mmHg, Cuff placed on Right Arm 12:56:05 History and physical on the chart or being dictated. Assessment: Initial Case, HR=81 BPM, Rhythm=Sinus, ZVMV=523/107 mmhg, Chest Pain=7, Edema=None, Color=Normal, Skin = Warm, Dry Right Pulses: Keyur Ped=2, Femoral=1 12:56:07 Left Pulses: Keyur Ped=2 Neurological: State=Alert, Ox3, NOBLES Respiration: Resp=20 B/min, SpO2=93 %, O2=0 lpm 12:56:29 GYIZ=757/107 mmhg, SpO2=94.0 %, Resp=6 B/min, Pain=0, Christa=10, Calvin=2 13:00:09 MD arrived. 13:01:11 HR=75 bpm, MSNG=194/110 mmhg, SpO2=95.0 %, Resp=23 B/min, Pain=0, Christa=10, Calvin=2 13:02:14 20 mg PEPCID given in lab by Sophie Tejeda, RN in Left Antecubital via Peripheral IV. 13:04:49 Right Radial and groin(s) prepped with 2% chlorhexidine, and draped after a 3 min. waiting time. 13:06:10 HR=80 bpm, CBHF=744/116 mmhg, SpO2=94.0 %, Resp=21 B/min, Pain=0, Christa=10, Calvin=2 13:07:40 Pressure channel 1 zeroed. 13:09:14 Reference ECG taken 13:11:05 HR=79 bpm, YFJS=704/104 mmhg, SpO2=96.0 %, Resp=17 B/min, Pain=0, Christa=10, Calvin=2 Time Out. Correct patient, correct procedure, correct physician, power injector loaded, or not loaded with contrast with 13:11:18 surgical team present. Time Out Concurred by MD and individual staff in procedure. 13:11:19 Case Start 13:11:21 5 mL 1% XYLOCAINE given in lab by Ronal Aceves in Right Radial via Subcutaneous. 13:11:23 0.5 mg VERSED given in lab by Mari Jackson BSRN in Left Antecubital via Peripheral IV. 13:11:25 25 mcg FENTANYL given in lab by Mari Jackson BSRN in Left Antecubital via Peripheral I V. 13:13:54 Access site was Radial Artery. A SHEATH, FR6 TRANSRADIAL SLENDER 10CM FR 6 was advanced into the Radial (right) using the Perc utaneous 13:14:01 technique. 5 mL (Bolus) RADIAL COCKTAIL given in lab by Ronal Aceves via Radial. Using [Solution Na me]. Reason: Ntg 13:14:17 200mcg Verapamil 2.5mg Heparin 3300U. A JR 4.0 INFINITI CATHETER FR 5 was advanced over a wire. OMNIPAQUE, 350 MG, 150ML 150ML was us ed for 13:14:56 injections. 13:16:13 HR=90 bpm, LJPY=580/87 mmhg, SpO2=90.0 %, Resp=19 B/min, Pain=8, Christa=10, Calvin=2 Recorded Pressure: LV, HR=85, Condition=Condition 1 13:16:48 (Left Ventricle) LV 174/1/12 Recorded Pressure: LV, Ao, HR=88, Condition=Condition 1 13:17:08 (Left Ventricle) LV 166/-2/12, (Aorta) Ao 162/88/121 Recorded Pressure: Ao, HR=85, Condition=Condition 1 13:17:37 (Aorta) Ao 164/95/127 13:17:59 The RCA was injected and visualized at various angles. OMNIPAQUE, 350 MG, 150ML 150ML used . After removing the current catheter a JL 3.5 INFINITI CATHETER FR 5 was advanced over a WIRE, E XCHANGE 260CM 13:19:36 3MMJ 260CM. 13:21:07 HR=87 bpm, LRED=013/105 mmhg, SpO2=91.0 %, Resp=19 B/min, Pain=8, Christa=10, Calvin=2 13:23:13 The LCA was injected and visualized at various angles. OMNIPAQUE, 350 MG, 150ML 150ML used . 13:23:23 10 mg HYDRALAZINE given in lab by Mari Jackson BSRN in Left Antecubital via Peripheral IV. 13:26:31 0.5 mg VERSED given in lab by Mari Jackson BSRN in Left Antecubital via Peripheral IV. 13:26:54 HR=84 bpm, CFTD=856/106 mmhg, SpO2=92.0 %, Resp=26 B/min, Pain=8, Christa=10, Calvin=2 13:31:12 HR=89 bpm, VGPK=845/114 mmhg, SpO2=92.0 %, Resp=31 B/min, Pain=8, Christa=10, Calvin=2 13:31:27 10 mg LABETOLOL given in lab by Mari Jackson BSRN in Left Antecubital via Peripheral I V. 13:31:48 A WIRE, EXCHANGE 260CM 3MMJ 260CM was inserted via Radial (right). 13:31:58 Catheter was removed 13:32:05 Wire removed 13:33:48 Case End 13:36:15 HR=86 bpm, CUDM=747/97 mmhg, SpO2=91.0 %, Resp=15 B/min, Pain=8, Christa=10, Calvin=2 13:41:12 HR=82 bpm, UVBI=117/101 mmhg, SpO2=92.0 %, Resp=24 B/min, Pain=8, Christa=10, Calvin=2 20 mcg/min NITROGLYCERIN DRIP given in lab by Mari Jackson BSRN in Left Antecubital via Pe ripheral IV. 13:43:13 Pump/Drip Flow = 6 ml/hr using D5W with a concentration of 50 mg in 250 ml. 13:46:13 HR=83 bpm, EHLW=595/103 mmhg, SpO2=91.0 %, Resp=11 B/min, Pain=8 40 mcg/min NITROGLYCERIN DRIP given in lab by Mari Jackson BSRN via Peripheral IV. Pump/Dr ip Flow = 12 13:49:47 ml/hr using D5W with a concentration of 50 mg in 250 ml. nitro turned up to 40 mcg 13:51:14 HR=85 bpm, CRNQ=556/91 mmhg, SpO2=91.0 %, Resp=19 B/min, Pain=0, Christa=10, Calvin=2 520 mcg/min NITROGLYCERIN DRIP given in lab by Mari Jackson BSRN via Peripheral IV. Pump/D rip Flow = 156 13:51:49 ml/hr using D5W with a concentration of 50 mg in 250 ml. nitro turned up to 50 mcg 13:56:11 HR=74 bpm, RGIW=336/70 mmhg, SpO2=91.0 %, Resp=25 B/min, Pain=8 13:56:46 Vitals capture stopped. Vitals capture started with the following parameters, Patient=Adult, Interval=3 min, Initial Pr rcfcee=126 mmHg, 13:58:06 Deflation Rate=5 mmHg, Cuff placed on Right Arm 13:58:40 HR=74 bpm, VHDA=847/72 mmhg, SpO2=90.0 %, Resp=23 B/min, Pain=8, Christa=10, Calvin=2 Assessment: Final Case, HR=72 BPM, Rhythm=Sinus, NEUB=984/72 mmhg, Chest Pain=8, Edema=None, Color=Normal, Skin = Warm, Dry 13:58:52 Right Pulses: Keyur Ped=2, Femoral=2, Radial=2 Neurological: State=Alert, Ox3, NOBLES Respiration: Resp=18 B/min, SpO2=92 %, O2=0 lpm 14:00:07 No case complications noted. 14:00:11 Cine recording checked. 14:00:37 Bedside Report will be given. 14:01:02 A Left Heart Cath was performed. Radial Compression Device Used. 9 mLs of air placed in BAND, RADIAL COMPRESSION TR SHORT 24 24 CM. Affected 14:01:13 hand 93 % O2 saturation. 14:01:39 HR=58 bpm, NIBP=98/54 mmhg, Resp=12 B/min, Pain=8, Christa=10, Calvin=2 0 units/hr NITROGLYCERN DRIP STOPPED given in lab by Mari Jackson, BSRN. Pump/Drip Flow = 0 ml/hr using 14:02:10 [Solution Name]. 14:03:11 NIBP STAT measurement started. 14:03:39 HR=51 bpm, NIBP=87/45 mmhg, SpO2=95.0 %, Resp=27 B/min, Pain=8, Christa=10, Calvin=2 14:04:37 HR=55 bpm, NIBP=97/36 mmhg, SpO2=94.0 %, Resp=18 B/min, Pain=8, Christa=10, Calvin=2 14:06:48 NIBP STAT measurement started. 14:07:49 HR=70 bpm, AWDM=276/65 mmhg, SpO2=99.0 %, Resp=20 B/min, Pain=8, Christa=10, Calvin=2 14:11:06 HR=81 bpm, CVAF=622/94 mmhg, SpO2=98.0 %, Resp=19 B/min, Pain=8, Christa=10, Calvin=2 14:13:41 IV Started left Anticubital 20g. Patient is going to CT Scan for CTA. 14:13:44 HR=80 bpm, TDRB=312/98 mmhg, SpO2=98.0 %, Resp=12 B/min, Pain=8, Christa=10, Calvin=2 14:16:44 HR=81 bpm, XFYD=424/94 mmhg, SpO2=98.0 %, Resp=14 B/min, Pain=8, Christa=10, Calvin=2 14:19:14 Vitals capture stopped. 14:20:39 Patient moved to stretcher End Study - Contrast Media Used In Study Contrast Total Opened (mL) Total Used (mL) Total Wasted (mL) Omnipaque 150 35 115 End Study - Maximum Contrast Load Max Contrast Load (mL) 602.3 End Study - Radiation Exposure Fluoro Time (minutes) 2.6 End Study - Patient Disposition Complications Transferred To Interventional Outcome No Outpatient Bed No attempt made
[2017-07-01] MEDS ORDERED: EPINEPHrine HCL (1:10,000) 1 MG/10 ML SYRINGE ONE (14:22)
[2017-07-01] MEDS ORDERED: MISC INFORMATION XX ONE (14:30)
[2017-07-01] MEDS ORDERED: IOHEXOL 350 MG/ML 10 ML VIAL (for RAD DIAG) IVCONTRAST ONE (14:44)
[2017-07-01] MEDS ORDERED: NITROGLYCERIN-D5W 50 MG/250 ML 250 ML ONE (15:12)
[2017-07-01] MEDS ORDERED: HYDROmorphone HCL PF 0.5 MG/0.5 ML SYRINGE IV PUSH ONE (15:15)
[2017-07-01] MEDS ORDERED: IOHEXOL 350 MG/ML 50 ML BTL (for Cath Lab) OTHER ONE (15:17)
--- NOTE | 2017-07-01 15:31 | PD.CONS ---
[facility] Service Critical Care Medicine Consult Requested By Dr. Aceves Reason for Consult Chest pain rule out ACS Hypertensive urgency Primary Care Physician Jed Sotelo MD History of Present Illness Patient is a 62-year-old female with past medical history significant for coronary artery disease, hypertension, dyslipidemia, neuroendocrine tumor of the pancreas, hypothyroidism, obesity who was admitted today for elective cardiac catheterization for evaluation of chest pain. During the procedure patient developed crushing chest pain with blood pressures in 200s systolic. Cardiac catheterization did not show any significant coronary artery disease but showed myocardial bridging. Due to ongoing chest pain patient received a CT angiogram of the aorta, which did not show any dissection also pulmonary embolism was ruled out. Patient was moved to the ICU to rule out ACS and also for hypertensive emergency. I evaluated the patient in ICU. She appears to be in moderate distress due to chest pain. I reviewed the 2-D echo myself there is no wall motion abnormality contractility appears normal. Patient has reproducible chest wall tenderness. Blood pressure is better controlled now Review of Systems ROS Limitations: Other (as per HPI) Past Family Social History Allergies: Coded Allergies: isosorbide (Verified Allergy, Severe, 07/01/17) latex (Verified Allergy, Intermediate, Hives, 06/29/17) morphine (Verified Allergy, Intermediate, Hives, 06/29/17) shellfish derived (Verified Allergy, Intermediate, lock jaw, 06/29/17) prochlorperazine (Unverified Allergy, Unknown, 06/29/17) Past Medical History Pancreatic neuroendocrine tumor diagnosed in 2004 Coronary Artery Disease Diabetes Type II Fibromyalgia High Cholesterol Osteoarthritis Peripheral Neuropathy Peripheral Vascular Disease Past Surgical History Resection of liver mets in 2014 Appendectomy in 2006 Hysterectomy, Complete in 2006 Pancreas Surgery in 2004 - distal pancreatectomy and splenectomy Cholecystectomy in 1997 Reported Medications Claritin Spiriva Proair INH Niacin Breo Ellipta Nitroglycerin when necessary Gabapentin Duloxetine Calcium plus vitamin D Protonix Metformin Levothyroxine B12 plus folic acid Active Ordered Medications Reviewed Family History Father has history of prostate cancer Social History No smoking, occasional alcohol Physical Exam Vital Signs Vital Signs Date Time Temp Pulse Resp B/P (MAP) Pulse Ox O2 Delivery O2 Flow Rate FiO2 07/01/17 13:43 83 190/100 07/01/17 09:54 98.0 65 18 173/99 (123) 96 Physical Exam GEN: Alert, awake oriented, moderate distress Head: Normocephalic; Atraumatic Eyes: Pupils are reactive and equal. ENT: Oral cavity is moist airway patent Neck: Supple. No jugular venous distension. Resp: Lungs are clear to auscultation, no rhonchi or wheezing. CVS: Regular rate and rhythm of heart without murmurs, gallops or rubs. Chest wall tenderness parasternally GI: Well-healed surgical scars no organomegaly Extremities: No pedal edema Neurologic: Alert and oriented 3 no focal deficits Laboratory Laboratory Tests Test 07/01/17 09:21 White Blood Count 12.8 Red Blood Count 4.79 Hemoglobin 14.6 Hematocrit 43.3 Mean Corpuscular Volume 90.3 Mean Corpuscular Hemoglobin 30.6 Mean Corpuscular Hemoglobin Concent 33.8 Red Cell Distribution Width 14.7 Platelet Count 384 Mean Platelet Volume 8.5 Neutrophils (%) (Auto) 54.4 Lymphocytes (%) (Auto) 33.2 Monocytes (%) (Auto) 7.6 Eosinophils (%) (Auto) 3.3 Basophils (%) (Auto) 1.5 Neutrophils # (Auto) 7.0 Lymphocytes # (Auto) 4.2 Monocytes # (Auto) 1.0 Eosinophils # (Auto) 0.4 Basophils # (Auto) 0.2 CBC Comment DIFF FINAL Differential Comment Prothrombin Time 10.5 Prothromb Time International Ratio 1.0 Activated Partial Thromboplast Time 26.8 Blood Urea Nitrogen 11 Creatinine 0.79 Random Glucose 211 Calcium Level 8.9 Sodium Level 136 Potassium Level 4.2 Chloride Level 101 Carbon Dioxide Level 27.6 Anion Gap 7 Estimat Glomerular Filtration Rate 74 Result Diagram: 07/01/1792007/01/17920 Imaging CTA - No dissection, No central PE Assessment and Plan Assessment and Plan NEURO: - As needed Dilaudid for pain. Benadryl PRN - Motrin PRN for MSK pain RESP: - Nasal cannula oxygen. DuoNeb q6hr PRN CV: Chest pain, atypical Myocardial bridging Hypertensive urgency - IV fluids - CTA neg for aortic dissection, no PE - Await 2d echo, cardiology Dr. Aceves, trend troponin - Cath shows no CAD, + Myocardial bridging - Coreg 6.25 mg BID - When necessary IV labetalol and Hydralazine for blood pressure control GI/ONC: History of pancreatic neuroendocrine tumor History of hepatic metastasis - Heart healthy ADA diet - History of pancreatic neuroendocrine tumor followed by oncology : - Monitor renal function closely. No indication for Patel ID: - Monitor for infection HEME: - Monitor CBC, CMP ENDO: Diabetes Hypothyroidism - Sliding-scale insulin, continue levothyroxine - Electrolyte replacement per protocol PROPH: - Bilateral lower extremity SCDs. Lovenox 40 mg sq daily - No indication for GI prophylaxis LINES: D - Utilize peripheral IVs, central line if needed Level 3 new consult. If trop negative, will transfer to [facility] Code Status Full Discussed Condition With Gloria Babb MD Jul 01, 2017 15:31
--- NOTE | 2017-07-01 16:15 | RADRPT ---
EXAM DATE/TIME: 07/01/2017 14:29 [place] COMPARISON: No previous studies available for comparison. INDICATIONS : Chest pain during cath. IV CONTRAST: 100 cc Omnipaque 350 (iohexol) IV RADIATION DOSE: 13.56 CTDIvol (mGy) MEDICAL HISTORY : Cardiovascular disease. Hypertension. Carcinoma, pancreas. SURGICAL HISTORY : Appendectomy. Cholecystectomy.Hysterectomy.Partial splenectomy. ENCOUNTER: Initial ACUITY: 1 day PAIN SCALE: 4/10 LOCATION: middle chest TECHNIQUE: Volumetric scanning was performed using a multi-row detector CT scanner. The data was post processed with a variety of visualization algorithms including full volume maximum intensity projection, multi -planar sliding thin slab reformation, curved planar reformation, and surface rendering techniques. Using automated exposure control and adjustment of the mA and/or kV according to patient size, radiat ion dose was kept as low as reasonably achievable to obtain optimal diagnostic quality images. DICOM format image data is available electronically for review and comparison. FINDINGS: LUNGS: There is no consolidation or pneumothorax. No concerning pulmonary nodule is visualized. No pleural fluid is present. MEDIASTINUM: No abnormally enlarged lymph nodes by CT criteria. No axillary or hilar abnormalities are identified. ABDOMEN: The liver and spleen are free of focal defects. The gallbladder and pancreas demonstrate no abnormali ty. The adrenal glands are normal. The kidneys demonstrate no evidence of solid renal mass or hydrone phrosis. No free fluid or abdominal masses are identified. No para-aortic adenopathy is seen. PELVIS: No evidence of free fluid or pelvic mass. No abnormally enlarged inguinal or retroperitoneal lymph no slade are present. The bladder is unremarkable. THORACIC AORTA: The thoracic aortic root is normal with normal branching of the great vessels. There is no evidence of aneurysm or dissection. ABDOMINAL AORTA: The aorta is normal in caliber without aneurysm or dissection. The renal arteries are patent bilater ally. The proximal celiac and superior mesenteric arteries are patent and normal in diameter. PELVIC VESSELS: The internal iliac and external iliac vessels are patent without aneurysm or stenosis. There are no central pulmonary glide. There is no pneumothorax or pericardial effusion There is mild fatty replacement of the liver. Bilateral small renal cysts are noted. There is no ad enopathy. There mild degenerative changes in the lumbar spine. CONCLUSION: No dissection, central pulmonary emboli or pericardial effusion. José Miguel Archer MD FACR on July 01, 2017 at 16:00 Board Certified Radiologist. This report was verified electronically.
[2017-07-01 16:56] LABS: CREATINE KINASE 79 U/L (26-192)
[2017-07-01] MEDS ORDERED: niCARdipine INJ 25 MG in SODIUM CHLOR 0.9% 250 ML INJ 240 ML IV PRN (17:00)
[2017-07-01] MEDS ORDERED: LABETALOL HCL 100 MG/20 ML VIAL IV PUSH PRN (17:00)
[2017-07-01] MEDS ORDERED: IBUPROFEN SUSP 100 MG/5 ML UDC PO PRN (17:45)
--- NOTE | 2017-07-01 17:58 | EKG ---
Date Performed: 07/01/2017 Time Performed: 09:30:48 PTAGE: 62 years EKG: Sinus bradycardia with borderline 1st degree A-V block QRS axis leftward Inferior T wave ch anges are nonspecific Abnormal ECG NO PREVIOUS TRACING DOCTOR: Jenny Bradley Interpretating Date/Time 07/01/2017 17:56:53
[2017-07-01] MEDS ORDERED: hydrALAZINE HCL 20 MG/ML VIAL IV PUSH PRN (18:00)
[2017-07-01] MEDS: ASPIRIN EC 81 MG TABEC PO SCH (18:00)
[2017-07-01] MEDS: ENOXAPARIN SODIUM 40 MG/0.4 ML SYRINGE SQ SCH (18:02)
[2017-07-01] MEDS: INSULIN ASPART SUPPLEMENTAL SCALE SQ SCH ×2 (18:06→22:27)
[2017-07-01] MEDS ORDERED: IBUPROFEN 600 MG TAB PO ONE (19:00)
--- NOTE | 2017-07-01 19:16 | MH ---
cc: RONAL SAUCEDO DO DATE OF ADMISSION: 07/01/2017 CHIEF COMPLAINT: Chest pain. HISTORY OF CHIEF COMPLAINT: Lillie Pritchard is a pleasant 62-year-old female who sees my partner, Dr. Sriram Nj, in the office and presented for elective cardiac catheterization. During the catheterization, she started having chest pain before the procedure started. 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 She started having more extensive chest pain and a blood pressure of 210/110. She was given multiple doses of medications including hydralazine and Labetalol which did not help her blood pressure. She was then placed on a nitroglycerin drip which then bottomed out her blood pressure at 98/40. The nitroglycerin drip was stopped and blood pressure stabilized around 140 to 150 systolic. She continued to have chest pain and said that it went to her back. Because of this, she underwent a CT angiogram of the aorta which did not show dissection and also a pulmonary embolism was ruled out. At this point, the patient was moved to the intensive care unit to rule out ACS and for better observation overnight. On seeing her after this, she states that she still has some moderate chest pain although it feels somewhat better. On touching her chest wall, she notes that this is starting to reproduce the chest pain and so appears musculoskeletal in nature. PAST MEDICAL HISTORY: 1. Pancreatic neuroendocrine tumor (2004). 2. Coronary artery disease. 3. Diabetes type 2. 4. Fibromyalgia. 5. Hyperlipidemia. 6. Osteoarthritis. 7. Hypertension. 8. Peripheral neuropathy. 9. Peripheral vascular disease. PAST SURGICAL HISTORY: 1. Cardiac catheterization (July 01, 2017) showing mild coronary artery disease with myocardial bridging noted in the mid left anterior descending. 2. Resection of liver metastasis (2014). 3. Appendectomy (2006). 4. Complete hysterectomy (2006). 5. Pancreatic surgery (2004). 6. Cholecystectomy (1997). ALLERGIES: 1. ISOSORBIDE. 2. LATEX. 3. MORPHINE. 4. PROCHLORPERAZINE. 5. SHELLFISH. MEDICATIONS: 1. Claritin 10 milligrams daily. 2. Spiriva two puffs daily. 3. ProAir every 4 to 6 hours as needed for shortness of breath. 4. Niacin 500 milligrams daily. 5. Nitro sublingual as needed for chest pain. 6. Gabapentin 300 milligrams twice a day. 7. Duloxetine 30 milligrams daily. 8. Brio one puff daily as needed for shortness of breath. 9. Protonix 40 milligrams daily. 10. Metformin 1000 milligrams daily. 11. Synthroid 75 micrograms daily. FAMILY HISTORY: Father had a history of prostate cancer. SOCIAL HISTORY: Denies tobacco or alcohol or drug abuse. REVIEW OF SYSTEMS Fourteen systems were reviewed including osteopathic with pertinent positives and negatives as above; otherwise negative. PHYSICAL EXAMINATION: VITAL SIGNS: Temperature 98.0, heart rate 81, blood pressure 147/71, respirations 18, pulse oximetry 100% on two liters. GENERAL: In general the patient appears well and in no acute distress, Awake, alert and oriented times three. HEAD, EYES, EARS, NOSE, THROAT: Extraocular muscles intact. Mucous membranes moist. NECK: The neck is supple. No JVD at 45 degrees. No carotid bruits heard bilaterally. Carotid upstroke is brisk in nature. HEART: Regular rate and rhythm. Positive first and second heart sounds with no noted murmurs, gallops or rubs. LUNGS: Clear to auscultation bilaterally. No wheezes, rales or rhonchi. ABDOMEN: The abdomen is soft, nontender and nondistended. No organomegaly noted. EXTREMITIES: No cyanosis, clubbing or edema. Femoral and distal pulses are intact bilaterally. NEUROLOGIC: No focal deficits. SKIN: Warm, dry and intact. OSTEOPATHIC: Osteopathically, no kyphoscoliosis, lordosis or paraspinal tender points. LAB WORK: Hemoglobin 14.6, hematocrit 43.3, platelet count 384,000. Potassium 4.2, BUN 11, creatinine 0.79. Troponin less than 0.02. EKGS: Electrocardiogram (July 01, 2017 at 1612): Sinus rhythm, possible left atrial enlargement, nonspecific STT wave changes. No significant change from July 01, 2017 at 0930. IMPRESSIONS: 1. Chest pain, which now appears musculoskeletal in nature. 2. 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 3. Accelerated hypertension / hypertensive urgency. RECOMMENDATIONS: 1. Ms. Pricthard's chest pain now appears musculoskeletal in nature. Because of this, we will plan on placing her on antiinflammatories [id number] to see if this helps with her pain. 2. Original concern was with her myocardial bridging and hypertensive urgency. Because of this, she will be started on beta melvin therapy for its chronotropic and antihypertensive properties. 3. We will plan on checking troponins overnight. 4. EKG shows no significant change. 5. CTA was done which ruled out dissection and pulmonary embolism. 6. Discussed with Dr. Joshi. Will plan on transferring him out of the intensive care unit tonight and to a hospitalist service. If stable tomorrow, can be discharged home for follow up with Dr. Nj in the office. Thank you for allowing me to see Lillie Pritchard. If there are any questions, please do not hesitate to call. Ronal Saucedo DO VGP/JCC /6:47 PM /6:58 PM
--- NOTE | 2017-07-01 20:04 | MA ---
cc: RONAL SAUCEDO DO DATE: 07/01/2017. PROCEDURE PERFORMED: Left heart catheterization, coronary angiogram, moderate sedation 22 minutes. PREPROCEDURE DIAGNOSIS: 1. Chest pain. 2. Hypertension. POSTPROCEDURE DIAGNOSIS: Mild coronary artery disease, myocardial bridging of the left anterior descending noted, accelerated hypertension / hypertensive urgency. MEDICATIONS: 1. Solu-Medrol 125 milligrams. 2. Pepcid 20 milligrams. 3. Benadryl 25 milligrams. 4. Versed 1 milligram. 5. Fentanyl 25 micrograms. 6. Heparin 3300 units. 7. Verapamil 2.5 milligrams. 8. Nitro 200 micrograms. 9. Hydralazine 10 milligrams. 10. Labetalol 10 milligrams. 11. Nitro drip. CONTRAST USED: 35 mL. FLUOROSCOPY: Fluoroscopy 2.6 minutes. SEDATION: Moderate sedation 22 minutes. PROCEDURAL SUMMARY: Lillie Pritchard is a pleasant 62-year-old female who sees my partner, Dr. Nj, in the office and was noted to have a negative stress test and coronary CT but continues to have chest pain. Because of this, she was recommended cardiac catheterization. Risks, benefits and alternatives were explained to her and she consented as such. DESCRIPTION OF THE PROCEDURE IN DETAIL: She was brought to the lab and prepped in the usual sterile fashion. The right radial artery was accessed using a modified Seldinger technique and placement of a 5/6 Beninese slender sheath. This was easily aspirated and flushed. A JR4 was advanced over a J-wire to the ascending aorta and across the aortic valve for measurement of left ventricular pressure. This was pulled back across the aortic valve showing no significant gradient of aortic stenosis. The JR4 was used for selective angiography of the right coronary artery. This was exchanged out for a JL3.5 which was used for selective angiography of the left coronary artery. The JL-3.5 was then removed over a J-wire. FINDINGS: 1. Left main: Normal sized vessel with adequate reflux and no significant disease. It bifurcates into an LAD and circumflex. 2. Left anterior descending: A normal sized vessel with tortuosity throughout. The midportion of the vessel has a 20% stenosis and throughout this is noted myocardial bridging. It gives off one major diagonal which has tortuosity throughout but no significant disease. 3. Left circumflex: Normal sized vessel with tortuosity throughout. It gives off one major obtuse marginal which shows tortuosity but no significant disease. 4. Right coronary artery: Moderate to large sized vessel with adequate reflux. Tortuosity throughout. It gives off a posterior descending artery and a large posterolateral branch with no significant disease noted. Left ventricular end diastolic pressure 12. POST PROCEDURE: During the procedure, Ms. Pritchard started having chest pain before a catheter was placed. As the procedure went on, she increased in chest pain and her blood pressure was noted to get to 210/100. She was noted to have myocardial bridging in the left anterior descending and it was felt that we should attempt to decrease her blood pressure as this may be partially the cause of her chest pain. She was given multiple dose of antihypertensives and started on a nitroglycerin drip. She then started to bottom out her pressure and so the nitroglycerin drip was stopped. The chest pain started going towards her back and so a stat CTA was ordered to rule out dissection. While down in the scanner, images were reviewed with Dr. Archer showing no dissection or perforation. She was then escorted up to the unit and while on the unit, she was noted to have a better blood pressure which has since stabilized. On asking her, her chest pain is now somewhat reproducible in the front portion of her chest wall. IMPRESSIONS: 1. Mild coronary artery disease with myocardial bridging of the left anterior descending. 2. Chest pain which now appears to be musculoskeletal in nature. 3. Accelerated hypertension / hypertensive urgency. RECOMMENDATIONS: 1. Ms. Pritchard appears to have chest pain which is most likely musculoskeletal in nature and we will plan on starting her on ibuprofen [id number] to help with inflammation. 2. Of concern was her volatile hypertension as well as her myocardial bridging. We will plan on starting her on beta melvin therapy for its antihypertensive and chronotropic properties to help with her myocardial bridging as well as her labile hypertension. 3. She was originally placed in the intensive care unit due to concern for her event. I believe that she can be transferred to the floor and if stable in the morning, discharged home for follow up with Dr. Nj. 4. A 2-D echocardiogram was obtained stat and shows normal wall motion and an ejection fraction of 65% to 70% and no significant valvulopathies. 5. EKG done showing no acute S-T-T wave changes. 6. Greater than 45 minutes of critical care time spent with the patient as well as evaluation of CTA and echocardiogram. Thank you for allowing me to see Ms. Pritchard. If there are any questions, please do not hesitate to call. 7. L 8. D echo was obtained stat and shows normal wall motion and ejection fraction of 65-70% in no significant bowel velocities. 9. EKG done showing no acute ST-T wave changes. 10. Greater than 45 minutes of critical care time spent with the patient as well as evaluation of CTA an echocardiogram. Thank you for allowing me to see Ms. Don done of a there are any questions please do not hesitate to call. Ronal Saucedo DO VGP/JCC /7:07 PM /7:34 PM
[2017-07-01 21:35] LABS: CREATINE KINASE 63 U/L (26-192)
[2017-07-01] MEDS: IBUPROFEN 600 MG TAB PO SCH (22:26)
[2017-07-01] MEDS: CARVEDILOL 6.25 MG TAB PO SCH (22:26)
[2017-07-02] VITALS (11 sets, daily range): BP systolic 127–154; BP diastolic 57–76; PULSE 52–91; RESP 6–18; TEMP 97.8–98.4; O2SAT 91–96
[2017-07-02] MEDS: INSULIN ASPART SUPPLEMENTAL SCALE SQ SCH ×6 (02:02→21:49)
[2017-07-02] MEDS: HYDROmorphone HCL PF 1 MG/ML VIAL IV PUSH PRN ×2 (02:42→10:18)
[2017-07-02 03:50] LABS: AUTOMATED NEUTROPHIL # 16.4 TH/MM3 (1.8-7.7); BASOPHIL # 0.1 TH/MM3 (0-0.2); BASOPHIL % 0.4 % (0.0-2.0); HEMATOCRIT 41.4 % (35.0-46.0); HEMO FLAGS DIFF FINAL; LYMPH % 8.3 % (9.0-44.0); LYMPHOCYTE # 1.5 TH/MM3 (1.0-4.8); MEAN CELL VOLUME 90.6 FL (80.0-100.0); MEAN CORPUSCULAR HEMOGLOBIN 30.9 PG (27.0-34.0); MEAN CORPUSCULAR HGB CONC 34.1 % (32.0-36.0); MONO % 1.2 % (0.0-8.0); NEUT % 90.1 % (16.0-70.0); PLATELET COUNT 355 TH/MM3 (150-450); RED BLOOD COUNT 4.57 MIL/MM3 (4.00-5.30); RED CELL DISTRIBUTION WIDTH 14.6 % (11.6-17.2); WHITE BLOOD COUNT 18.2 TH/MM3 (4.0-11.0)
[2017-07-02 04:07] LABS: ANION GAP 10 MEQ/L (5-15); BICARBONATE 25.2 MEQ/L (21.0-32.0); BLOOD UREA NITROGEN 11 MG/DL (7-18); CHLORIDE 103 MEQ/L (98-107); GLOMERULAR FILTRATION RATE 76 ML/MIN (>89); POTASSIUM 3.7 MEQ/L (3.5-5.1); SODIUM (NA) 138 MEQ/L (136-145)
[2017-07-02 04:13] LABS: CREATINE KINASE 62 U/L (26-192)
[2017-07-02] MEDS: LEVOTHYROXINE SODIUM 75 MCG TAB PO SCH (05:55)
[2017-07-02] MEDS: IBUPROFEN 600 MG TAB PO SCH ×2 (05:56→13:35)
[2017-07-02] MEDS ORDERED: PANTOPRAZOLE SOD 40 MG DELAYED RELEASE TAB PO SCH (09:00)
[2017-07-02] MEDS: NS 1000P @30 MLS/HR (KVO) IV SCH (09:00)
[2017-07-02] MEDS: ASPIRIN EC 81 MG TABEC PO SCH (09:05)
[2017-07-02] MEDS: DULoxetine HCl DR 30 MG CAP PO SCH (09:05)
[2017-07-02] MEDS: CARVEDILOL 6.25 MG TAB PO SCH ×2 (09:05→21:48)
[2017-07-02] MEDS ORDERED: METO1TAB42 PO (09:32)
--- NOTE | 2017-07-02 10:08 | PD.CARD.PN ---
Subjective Subjective Remarks "I have a headache and abd pain" Objective Medications Current Medications Medications (Trade) Dose Ordered Sig/Darren Route Start Time Stop Time Status Last Admin Sodium Chloride 1,000 ml @ 30 mls/hr Q24H IV 07/01/17 09:00 07/01/17 09:00 (Cymbalta Dr) 30 mg DAILY PO 07/02/17 09:00 07/02/17 09:05 (Synthroid) 75 mcg DAILY@0600 PO 07/02/17 06:00 07/02/17 05:55 (Protonix) 40 mg DAILY PO 07/02/17 09:00 07/02/17 09:05 (Dilaudid Pf Inj) 1 mg Q4H PRN IV PUSH 07/01/17 16:00 07/02/17 02:42 (Ecotrin Ec) 81 mg DAILY PO 07/01/17 17:00 07/02/17 09:05 (Trandate Inj) 20 mg Q4H PRN IV PUSH 07/01/17 17:00 Nicardipine HCl 25 mg/Sodium Chloride 250 ml @ 50 mls/hr TITRATE PRN IV 07/01/17 17:00 (NovoLOG SUPPLEMENTAL SCALE) 1 Q4H SQ 07/01/17 17:00 07/02/17 05:55 (Lovenox Inj) 40 mg Q24H SQ 07/01/17 18:00 07/01/17 18:02 (Coreg) 6.25 mg Q12HR PO 07/01/17 21:00 07/02/17 09:05 (Apresoline Inj) 20 mg Q4H PRN IV PUSH 07/01/17 18:00 (Motrin) 600 mg Q8HR PO 07/01/17 22:00 07/02/17 05:56 Vital Signs / I&O Vital Signs Date Time Temp Pulse Resp B/P (MAP) Pulse Ox O2 Delivery O2 Flow Rate FiO2 07/02/17 06:00 84 07/02/17 04:00 97.8 70 14 127/61 (83) 91 07/02/17 04:00 70 07/02/17 02:00 82 07/02/17 00:00 98.0 91 6 128/57 (80) 93 07/02/17 00:00 91 07/01/17 22:00 97 07/01/17 20:00 100 07/01/17 20:00 98.7 100 22 153/71 (98) 94 07/01/17 19:20 94 21 07/01/17 18:00 84 07/01/17 16:19 18 07/01/17 16:12 99 Non-Rebreather 15.00 07/01/17 16:00 98.0 89 20 147/71 (96) 95 07/01/17 16:00 76 07/01/17 15:00 70 07/01/17 13:43 83 190/100 I/O 07/01/17 07/01/17 07/01/17 07/02/17 07/02/17 07/02/17 07:00 15:00 23:00 07:00 15:00 23:00 Intake Total 480 ml 960 ml Output Total 1000 ml Balance -520 ml 960 ml Intake Oral 480 ml 960 ml Output Urine Total 1000 ml # Voids 3 Physical Exam GENERAL: Well-nourished, well-developed patient. SKIN: Warm and dry. HEAD: Normocephalic. EYES: No scleral icterus. No injection or drainage. NECK: Supple, trachea midline. No JVD or lymphadenopathy. CARDIOVASCULAR: Regular rate and rhythm without murmurs, gallops, or rubs. RESPIRATORY: Breath sounds equal bilaterally. No accessory muscle use. GASTROINTESTINAL: Abdomen soft, tender to palpitation, nondistended. EXTREMITIES: No cyanosis, or edema. NEUROLOGICAL: Awake, alert, and oriented x 3. Non-focal. Laboratory Laboratory Tests Test 07/01/17 16:00 07/01/17 20:51 07/02/17 03:21 Total Creatine Kinase 79 U/L 63 U/L 62 U/L Troponin I LESS THAN 0.02 NG/ML LESS THAN 0.02 NG/ML LESS THAN 0.02 NG/ML White Blood Count 18.2 TH/MM3 Red Blood Count 4.57 MIL/MM3 Hemoglobin 14.1 GM/DL Hematocrit 41.4 % Mean Corpuscular Volume 90.6 FL Mean Corpuscular Hemoglobin 30.9 PG Mean Corpuscular Hemoglobin Concent 34.1 % Red Cell Distribution Width 14.6 % Platelet Count 355 TH/MM3 Mean Platelet Volume 8.5 FL Neutrophils (%) (Auto) 90.1 % Lymphocytes (%) (Auto) 8.3 % Monocytes (%) (Auto) 1.2 % Eosinophils (%) (Auto) 0.0 % Basophils (%) (Auto) 0.4 % Neutrophils # (Auto) 16.4 TH/MM3 Lymphocytes # (Auto) 1.5 TH/MM3 Monocytes # (Auto) 0.2 TH/MM3 Eosinophils # (Auto) 0.0 TH/MM3 Basophils # (Auto) 0.1 TH/MM3 CBC Comment DIFF FINAL Differential Comment Blood Urea Nitrogen 11 MG/DL Creatinine 0.77 MG/DL Random Glucose 224 MG/DL Calcium Level 8.5 MG/DL Sodium Level 138 MEQ/L Potassium Level 3.7 MEQ/L Chloride Level 103 MEQ/L Carbon Dioxide Level 25.2 MEQ/L Anion Gap 10 MEQ/L Estimat Glomerular Filtration Rate 76 ML/MIN Imaging Last Impressions Aorta CTA 07/01/17 0000 Signed Impressions: Service Date/Time: Saturday, July 01, 2017 14:29 - CONCLUSION: No dissection , central pulmonary emboli or pericardial effusion. José Miguel Archer MD FACR Assessment and Plan Problem List: (1) Anterior chest wall pain ICD Codes: R07.89 - Other chest pain Status: Acute Plan: Chest pain, atypical Myocardial bridging Hypertensive urgency CTA neg for aortic dissection, no PE Unremarkable Echo Cath shows no CAD, + Myocardial bridging This AM complaints of abd pain Leukocytoisis, no fever Plan: - Ok to Tx to [facility] - Amylase, Lipase, UA - Increase Protonix 40mg BID - Cont BP control (2) Family history of hypertension (3) BMI 33.0-33.9,adult ICD Codes: Z68.33 - Body mass index (BMI) 33.0-33.9, adult Lopez-Braxton Penny MD Jul 02, 2017 10:08
--- NOTE | 2017-07-02 12:11 | EKG ---
Date Performed: 07/01/2017 Time Performed: 16:12:31 PTAGE: 62 years EKG: Sinus rhythm POSSIBLE LEFT ATRIAL ENLARGEMENT NONSPECIFIC T-WAVE ABNORMALITY BORDERLINE ECG PREVIOUS TRACING : 07/01/2017 09.30 Since previous tracing, no significant change. DOCTOR: Beltran Antonio Interpretating Date/Time 07/02/2017 12:10:09
[2017-07-02] MEDS ORDERED: SOD PHOSPHATE/SOD BIPHOSPHATE (ADULT) ENEMA 133ML RECTAL ONE (15:45)
[2017-07-02] MEDS ORDERED: DOCUSATE SODIUM 50 MG/SENNA 8.6 MG TAB PO ONE (15:45)
[2017-07-02] MEDS ORDERED: MAGNESIUM HYDROXIDE SUSP 30 ML CUP PO ONE (15:45)
[2017-07-02 15:59] LABS: INDIRECT BILIRUBIN 0.2 MG/DL (0.0-0.8); TOTAL BILIRUBIN ADULT 0.3 MG/DL (0.2-1.0)
[2017-07-02] MEDS: ENOXAPARIN SODIUM 40 MG/0.4 ML SYRINGE SQ SCH (16:43)
[2017-07-02] MEDS ORDERED: PANTOPRAZOLE SOD 40 MG DELAYED RELEASE TAB PO ONE (20:15)
[2017-07-02 20:30] LABS: BACTERIA, URINE FEW /hpf; BLOOD, URINE TRACE (NEG); COMMENT (UR) CULT NOT INDICATED; CULTURE IF INDICATED CULT NOT INDICATED; GLUCOSE,URINE 70 mg/dL (NEG); KETONE, URINE NEG (NEG); NITRITE,URINE NEG (NEG); SQUAMOUS EPITHELIAL CELL URINE 2 /hpf (0-5); URINE COLOR LIGHT-YELLOW (YELLW/STRAW)
--- NOTE | 2017-07-02 20:47 | PD.CONS ---
[facility] Request[facility] By Primary Care Physician Jed Sotelo MD Diagnoses: History of Present Illness Patient reports that chest pain present on admission has resolved. She reports subsequently experiencing abdominal discomfort described as epigastric sharp and constant which is present for the past day. She also reports intermittent nausea, poor appetite which is currently resolved. She has been taking ibuprofen 3 times daily. Denies any hematochezia or hematemesis. She does report some constipation, with most recent bowel movement several days ago.. Review of Systems Except as stated in HPI: all other systems reviewed are Neg Past Family Social History Allergies: Coded Allergies: isosorbide (Verified Allergy, Severe, 07/01/17) latex (Verified Allergy, Intermediate, Hives, 06/29/17) morphine (Verified Allergy, Intermediate, Hives, 06/29/17) shellfish derived (Verified Allergy, Intermediate, lock jaw, 06/29/17) prochlorperazine (Unverified Allergy, Unknown, 06/29/17) Past Medical History Pancreatic neuroendocrine tumor Coronary disease Type 2 diabetes 5 mild to Hyperlipidemia Osteoarthritis Hypertension Peripheral neuropathy Peripheral vascular disease COPD Past Surgical History Cardiac catheterizations Resection of liver metastasis 2015 Appendectomy Hysterectomy Pancreatic surgery Cholecystectomy Reported Medications reviewed home medications as documented. Family History Father with history of prostate cancer. Social History Nonsmoker. Nondrinker. Denies illicit drug use. Physical Exam Vital Signs Vital Signs Date Time Temp Pulse Resp B/P (MAP) Pulse Ox O2 Delivery O2 Flow Rate FiO2 07/02/17 18:00 86 07/02/17 16:00 98.4 56 16 137/65 (89) 94 07/02/17 16:00 86 07/02/17 14:35 16 07/02/17 14:00 86 07/02/17 12:00 98.0 52 16 154/76 (102) 95 07/02/17 12:00 86 07/02/17 10:00 86 07/02/17 08:00 98.3 71 17 145/76 (99) 94 07/02/17 08:00 86 07/02/17 06:00 84 07/02/17 04:00 97.8 70 14 127/61 (83) 91 07/02/17 04:00 70 07/02/17 02:00 82 07/02/17 00:00 98.0 91 6 128/57 (80) 93 07/02/17 00:00 91 07/01/17 22:00 97 Physical Exam GENERAL: This is a well-nourished, well-developed patient, appears uncomfortable. SKIN: No rashes, ecchymoses or lesions. Cool and dry. HEAD: Atraumatic. Normocephalic. No temporal or scalp tenderness. EYES: Pupils equal round and reactive. Extraocular motions intact. No scleral icterus. No injection or drainage. ENT: Nose without bleeding, purulent drainage or septal hematoma. Throat without erythema, tonsillar hypertrophy or exudate. Uvula midline. Airway patent. NECK: Trachea midline. No JVD or lymphadenopathy. Supple, nontender, no meningeal signs. CARDIOVASCULAR: Regular rate and rhythm without murmurs, gallops, or rubs. RESPIRATORY: Clear to auscultation. Breath sounds equal bilaterally. No wheezes , rales, or rhonchi. GASTROINTESTINAL: Abdomen soft, nondistended. epigastric tenderness to palpation.No hepato-splenomegaly, or palpable masses. No guarding. MUSCULOSKELETAL: Extremities without clubbing, cyanosis, or edema. No joint tenderness, effusion, or edema noted. No calf tenderness. Negative Homans sign bilaterally. NEUROLOGICAL: Awake and alert. Cranial nerves II through XII intact. Motor and sensory grossly within normal limits. Five out of 5 muscle strength in all muscle groups. Normal speech. Laboratory Laboratory Tests Test 07/01/17 20:51 07/02/17 03:21 07/02/17 11:15 07/02/17 20:00 Total Creatine Kinase 63 62 Troponin I LESS THAN 0.02 LESS THAN 0.02 White Blood Count 18.2 Red Blood Count 4.57 Hemoglobin 14.1 Hematocrit 41.4 Mean Corpuscular Volume 90.6 Mean Corpuscular Hemoglobin 30.9 Mean Corpuscular Hemoglobin Concent 34.1 Red Cell Distribution Width 14.6 Platelet Count 355 Mean Platelet Volume 8.5 Neutrophils (%) (Auto) 90.1 Lymphocytes (%) (Auto) 8.3 Monocytes (%) (Auto) 1.2 Eosinophils (%) (Auto) 0.0 Basophils (%) (Auto) 0.4 Neutrophils # (Auto) 16.4 Lymphocytes # (Auto) 1.5 Monocytes # (Auto) 0.2 Eosinophils # (Auto) 0.0 Basophils # (Auto) 0.1 CBC Comment DIFF FINAL Differential Comment Blood Urea Nitrogen 11 Creatinine 0.77 Random Glucose 224 Calcium Level 8.5 Sodium Level 138 Potassium Level 3.7 Chloride Level 103 Carbon Dioxide Level 25.2 Anion Gap 10 Estimat Glomerular Filtration Rate 76 Total Bilirubin 0.3 Direct Bilirubin 0.1 Indirect Bilirubin 0.2 Aspartate Amino Transf (AST/SGOT) 19 Alanine Aminotransferase (ALT/SGPT) 47 Alkaline Phosphatase 100 Total Protein 6.9 Albumin 3.1 Amylase Level 45 Lipase 100 Thyroid Stimulating Hormone 3rd Gen 1.810 Result Diagram: 07/02/17 0321 07/02/17 0321 Imaging Last Impressions Aorta CTA 07/01/17 0000 Signed Impressions: Service Date/Time: Saturday, July 01, 2017 14:29 - CONCLUSION: No dissection , central pulmonary emboli or pericardial effusion. José Miguel Archer MD FACR Assessment and Plan Assessment and Plan //Atypical Chest pain -Aorta CTA negative for PE, dissection. 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 -Could be secondary to abdominal pain. //Abdominal pain //Odynophagia //Nausea //Constipation on CT -CT angiogram are slightly reviewed with no acute intra-abdominal finding -Laxatives ordered -could be gastric ulcer.Discontinue 3 times a day ibuprofen. Start PPI. Ingrown stable. -GI consultation. // hypertension. Blood pressure acceptable. Continue current medications. //Leukocytosis -12.8 on admission, subsequently 18.2 on 07/02. Patient did receive methylprednisolone on admission secondary to shellfish allergy. Continue to monitor for signs of infection. Discussed Condition With patient, at bedside. Heath Sotelo MD Jul 02, 2017 20:47
[2017-07-02] MEDS: DOCUSATE SODIUM 50 MG/SENNA 8.6 MG TAB PO SCH ×2 (21:00→21:47)
[2017-07-02] MEDS: ONDANSETRON HCL 4 MG/2 ML VIAL IV PUSH PRN (21:47)
[2017-07-02] MEDS: SUCRALFATE 1 GM/10 ML CUP PO SCH (21:47)
[2017-07-02] MEDS: PANTOPRAZOLE SOD 40 MG DELAYED RELEASE TAB PO SCH (21:48)
[2017-07-03] VITALS (8 sets, daily range): BP systolic 106–132; BP diastolic 53–70; PULSE 50–66; RESP 18–20; TEMP 97.5–98.7; O2SAT 92–95
[2017-07-03] MEDS: INSULIN ASPART SUPPLEMENTAL SCALE SQ SCH ×6 (01:21→21:00)
[2017-07-03] MEDS ORDERED: IBUPROFEN 600 MG TAB PO ONE (02:30)
[2017-07-03] MEDS: LEVOTHYROXINE SODIUM 75 MCG TAB PO SCH (05:34)
[2017-07-03] MEDS: ONDANSETRON HCL 4 MG/2 ML VIAL IV PUSH PRN (08:35)
[2017-07-03] MEDS: SUCRALFATE 1 GM/10 ML CUP PO SCH ×4 (08:36→22:49)
[2017-07-03] MEDS: PANTOPRAZOLE SOD 40 MG DELAYED RELEASE TAB PO SCH ×3 (09:00→22:49)
[2017-07-03] MEDS: DULoxetine HCl DR 30 MG CAP PO SCH (09:27)
[2017-07-03] MEDS: ASPIRIN EC 81 MG TABEC PO SCH (09:28)
[2017-07-03] MEDS: DOCUSATE SODIUM 50 MG/SENNA 8.6 MG TAB PO SCH ×2 (09:28→21:00)
[2017-07-03] MEDS: CARVEDILOL 6.25 MG TAB PO SCH ×2 (09:28→22:49)
--- NOTE | 2017-07-03 10:09 | PD.CARD.PN ---
Subjective Subjective Remarks "I have abd pain" Objective Medications Current Medications Medications (Trade) Dose Ordered Sig/Darren Route Start Time Stop Time Status Last Admin (Cymbalta Dr) 30 mg DAILY PO 07/02/17 09:00 07/03/17 09:27 (Synthroid) 75 mcg DAILY@0600 PO 07/02/17 06:00 07/03/17 05:34 (Dilaudid Pf Inj) 1 mg Q4H PRN IV PUSH 07/01/17 16:00 07/02/17 10:18 (Ecotrin Ec) 81 mg DAILY PO 07/01/17 17:00 07/03/17 09:28 (Trandate Inj) 20 mg Q4H PRN IV PUSH 07/01/17 17:00 (NovoLOG SUPPLEMENTAL SCALE) 1 Q4H SQ 07/01/17 17:00 07/03/17 09:29 (Lovenox Inj) 40 mg Q24H SQ 07/01/17 18:00 07/02/17 16:43 (Coreg) 6.25 mg Q12HR PO 07/01/17 21:00 07/03/17 09:28 (Apresoline Inj) 20 mg Q4H PRN IV PUSH 07/01/17 18:00 (Protonix) 40 mg BID PO 07/02/17 21:00 07/03/17 09:26 (Paula-Colace) 1 tab BID PO 07/02/17 21:00 07/03/17 09:28 (Protonix) 40 mg DAILY PO 07/03/17 09:00 (Carafate Liq) 1 gm ACHS PO 07/02/17 21:00 07/03/17 08:36 (Zofran Inj) 4 mg Q6HR PRN IV PUSH 07/02/17 20:30 07/03/17 08:35 (Tylenol) 500 mg Q4H PRN PO 07/03/17 09:30 Vital Signs / I&O Vital Signs Date Time Temp Pulse Resp B/P (MAP) Pulse Ox O2 Delivery O2 Flow Rate FiO2 07/03/17 08:01 61 07/03/17 08:00 98.2 60 19 132/61 (84) 94 07/03/17 05:24 97.7 50 20 115/69 (84) 94 07/03/17 00:54 97.5 59 20 123/70 (87) 92 07/02/17 22:04 98.0 52 18 150/73 (98) 96 07/02/17 18:00 86 07/02/17 16:00 98.4 56 16 137/65 (89) 94 07/02/17 16:00 86 07/02/17 14:35 16 07/02/17 14:00 86 07/02/17 12:00 98.0 52 16 154/76 (102) 95 07/02/17 12:00 86 I/O 07/02/17 07/02/17 07/02/17 07/03/17 07/03/17 07/03/17 07:00 15:00 23:00 07:00 15:00 23:00 Intake Total 960 ml 720 ml Output Total 600 ml Balance 960 ml 120 ml Intake Oral 960 ml 720 ml Output Urine Total 600 ml # Voids 3 1 # Bowel Movements 2 Physical Exam GENERAL: Well-nourished, well-developed patient. SKIN: Warm and dry. HEAD: Normocephalic. EYES: No scleral icterus. No injection or drainage. NECK: Supple, trachea midline. No JVD or lymphadenopathy. CARDIOVASCULAR: Regular rate and rhythm without murmurs, gallops, or rubs. RESPIRATORY: Breath sounds equal bilaterally. No accessory muscle use. GASTROINTESTINAL: Abdomen soft, tender to palpitation, nondistended. EXTREMITIES: No cyanosis, or edema. NEUROLOGICAL: Awake, alert, and oriented x 3. Non-focal. Laboratory Laboratory Tests Test 07/02/17 11:15 07/02/17 20:00 Total Bilirubin 0.3 MG/DL Direct Bilirubin 0.1 MG/DL Indirect Bilirubin 0.2 MG/DL Aspartate Amino Transf (AST/SGOT) 19 U/L Alanine Aminotransferase (ALT/SGPT) 47 U/L Alkaline Phosphatase 100 U/L Total Protein 6.9 GM/DL Albumin 3.1 GM/DL Amylase Level 45 U/L Lipase 100 U/L Thyroid Stimulating Hormone 3rd Gen 1.810 uIU/ML Urine Color LIGHT-YELLOW Urine Turbidity HAZY Urine pH 6.0 Urine Specific [place] 1.009 Urine Protein NEG mg/dL Urine Glucose (UA) 70 mg/dL Urine Ketones NEG mg/dL Urine Occult Blood TRACE Urine Nitrite NEG Urine Bilirubin NEG Urine Urobilinogen LESS THAN 2.0 MG/DL Urine Leukocyte Esterase NEG Urine RBC 1 /hpf Urine WBC 1 /hpf Urine Squamous Epithelial Cells 2 /hpf Urine Bacteria FEW /hpf Microscopic Urinalysis Comment CULT NOT INDICATED Imaging Last Impressions Aorta CTA 07/01/17 0000 Signed Impressions: Service Date/Time: Tuesday, July 01, 2017 14:29 - CONCLUSION: No dissection , central pulmonary emboli or pericardial effusion. José Miguel Archer MD FACR Assessment and Plan Problem List: (1) Anterior chest wall pain ICD Codes: R07.89 - Other chest pain Status: Acute Plan: Chest pain, atypical Myocardial bridging Hypertensive urgency CTA neg for aortic dissection, no PE Unremarkable Echo Cath shows no CAD, + Myocardial bridging Continues with abd pain Leukocytosis, no fever Plan: Cont medical management Stable from CV standpoint to d/c home Dr. Aceves will f/u in AM (2) Family history of hypertension (3) BMI 33.0-33.9,adult ICD Codes: Z68.33 - Body mass index (BMI) 33.0-33.9, adult Braxton Up MD Jul 03, 2017 10:09
[2017-07-03] MEDS: ACETAMINOPHEN 500 MG CPLT PO PRN ×2 (10:15→17:37)
--- NOTE | 2017-07-03 10:30 | HHI.PR ---
Subjective Remarks Patient in nad. With nausea, complaints of epigastric abdominal pain and fullness. Has problems swallowing solid foods. No fever or chills. Denies chest pain or sob. Objective Vitals Vital Signs Date Time Temp Pulse Resp B/P (MAP) Pulse Ox O2 Delivery O2 Flow Rate FiO2 07/03/17 08:01 61 07/03/17 08:00 98.2 60 19 132/61 (84) 94 07/03/17 05:24 97.7 50 20 115/69 (84) 94 07/03/17 00:54 97.5 59 20 123/70 (87) 92 07/02/17 22:04 98.0 52 18 150/73 (98) 96 07/02/17 18:00 86 07/02/17 16:00 98.4 56 16 137/65 (89) 94 07/02/17 16:00 86 07/02/17 14:35 16 07/02/17 14:00 86 07/02/17 12:00 98.0 52 16 154/76 (102) 95 07/02/17 12:00 86 I/O 07/02/17 07/02/17 07/02/17 07/03/17 07/03/17 07/03/17 07:00 15:00 23:00 07:00 15:00 23:00 Intake Total 960 ml 720 ml Output Total 600 ml Balance 960 ml 120 ml Intake Oral 960 ml 720 ml Output Urine Total 600 ml # Voids 3 1 # Bowel Movements 2 Result Diagram: 07/02/17 0321 07/02/17 0321 Imaging Last Impressions Aorta CTA 07/01/17 0000 Signed Impressions: Service Date/Time: Saturday, July 01, 2017 14:29 - CONCLUSION: No dissection , central pulmonary emboli or pericardial effusion. José Miguel Archer MD FACR Objective Remarks GENERAL: This is a well-nourished, well-developed patient, appears uncomfortable. CARDIOVASCULAR: Regular rate and rhythm without murmurs, gallops, or rubs. RESPIRATORY: Clear to auscultation. Breath sounds equal bilaterally. No wheezes , rales, or rhonchi. GASTROINTESTINAL: Abdomen soft, nondistended. epigastric tenderness to palpation.No hepato-splenomegaly, or palpable masses. No guarding. MUSCULOSKELETAL: Extremities without clubbing, cyanosis, or edema. No joint tenderness, effusion, or edema noted. No calf tenderness. Negative Homans sign bilaterally. NEUROLOGICAL: Awake and alert. Cranial nerves II through XII intact. Motor and sensory grossly within normal limits. Five out of 5 muscle strength in all muscle groups. Normal speech. A/P Assessment and Plan Atypical Chest pain -Aorta CTA negative for PE, dissection. 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 -Could be secondary to abdominal pain. Abdominal pain Odynophagia Nausea Constipation on CT -CT angiogram are slightly reviewed with no acute intra-abdominal finding -Laxatives ordered -could be gastric ulcer.Discontinue 3 times a day ibuprofen. Start PPI. Ingrown stable. -GI consultation. -Will order CT abd /pelvis Hypertension. Blood pressure acceptable. Continue current medications. Leukocytosis -12.8 on admission, subsequently 18.2 on 07/02. Patient did receive methylprednisolone on admission secondary to shellfish allergy. Continue to monitor for signs of infection. Discussed Condition With patient, at bedside. Emi Jackson MD Jul 03, 2017 10:30
[2017-07-03] MEDS ORDERED: DIATRIZOATE MEGLUM/DIATRIZOATE SOD 9 ML CUP PO ONE (11:45)
--- NOTE | 2017-07-03 12:51 | PD.CONS ---
HPI History of Present Illness This is a 62 year old female who came to the hospital for an elective heart catheterization on 07/01, which showed mild coronary artery disease with myocardial bridging noted in the left anterior descending. She started having more significant chest pain and underwent a CT angiogram of the aorta, which ruled out dissection and pulmonary embolism and was transferred to the unit for observation overnight. Her chest pain improved and she is now on the medical floor. GI has been consulted for nausea and odynophagia. The patient reports that she has been having intermittent nausea and reflux for the past month. She was initially started on omeprazole, but she states this did not work well for her and therefore was changed to pantoprazole. This seemed to help with the reflux, but not the nausea. About 2 weeks ago, she started having LUQ pain , described as a "fullness or heaviness." She has associated nausea, early satiety, belching, bloating, and reflux. This is aggravated by po intake. She has not had vomiting and denies any constipation, diarrhea, melena, or hematochezia. She also reports that she has some difficulty swallowing, mostly solids, but liquids too, with them getting "hung up" in her upper esophagus. The solids then seem to get caught in her middle esophagus and she has pain as the solid food goes down. She has DM and states that they have been elevated recently. She has a history of esophageal strictures and had a dilatation in 2016 in [place]. She also has a history of pancreatic neuroendocrine tumor and required resection of this and some disease in her liver in 2014. She is now followed by Dr. Hubbard. (Yin Jeff) PFSH Past Medical History CAD DM Fibromyalgia Esophageal strictures GERD Hyperlipidemia OA Peripheral neuropathy PVD Past Surgical History Resection of neuroendocrine tumor from pancreas and liver Cholecystectomy Cardiac catheterization Hysterectomy EGD with dilatation (Yin Jeff) Coded Allergies: isosorbide (Verified Allergy, Severe, 07/01/17) latex (Verified Allergy, Intermediate, Hives, 06/29/17) morphine (Verified Allergy, Intermediate, Hives, 06/29/17) shellfish derived (Verified Allergy, Intermediate, lock jaw, 06/29/17) prochlorperazine (Unverified Allergy, Unknown, 06/29/17) Medications Allergies Coded Allergies Type Severity Reaction Last Updated Verified isosorbide Allergy Severe 07/01/17 Yes latex Allergy Intermediate Hives 06/29/17 Yes morphine Allergy Intermediate Hives 06/29/17 Yes shellfish derived Allergy Intermediate lock jaw 06/29/17 Yes prochlorperazine Allergy Unknown 06/29/17 No Active Scripts Medications Dose Route/Sig Max Daily Dose Days Date Category Dose Instructions Metoprolol Succinate ER 24 HR (Metoprolol Succinate) 25 Mg Tab 25 Mg PO DAILY 07/02/17 Reported Calcium 500 +D (Calcium Carbonate-Cholecalciferol) 500-400 Mg-Unit Tab 1 Tab PO DAILY 07/01/17 Reported Vitamin M17-Cadov Acid (Cobalamine Combinations) 500-400 Mcg Tab 1 Tab PO DAILY 07/01/17 Reported [benadryl] Unknown Dose P-ARTICULR DAILY 07/01/17 Reported Spiriva Respimat Inh (Tiotropium Inh) 1.25 Mcg/Act Aero 2 Puff INH DAILY 07/01/17 Reported 1.25 mcg = 1 inhalation Proair Hfa 8.5 GM Inh (Albuterol Sulfate) 90 Mcg/Act Aer 2 Puff INH Q4-6H PRN 07/01/17 Reported 108 mcg/actuation Nitroglycerin SL (Nitroglycerin) 0.4 Mg Subl 0.4 Mg SL DIRECTED PRN 07/01/17 Reported ONE TABLET UNDER THE TONGUE NEEDED FOR CHEST PAIN, MAY REPEAT EVERY FIVE MINUTES FOR A TOTAL OF 3 DOSES OR CALL 911 IF NO RELIEF Niacin 500 Mg Tab 500 Mg PO DAILY 07/01/17 Reported Gabapentin 300 Mg Cap 300 Mg PO BID 07/01/[address] (Duloxetine HCl) 30 Mg Capdr 30 Mg PO DAILY 07/01/17 Reported Claritin (Loratadine) 10 Mg Cap 10 Mg PO DAILY 07/01/17 Reported Levothyroxine (Levothyroxine Sodium) 75 Mcg Tab 75 Mcg PO DAILY 07/01/17 Reported Pantoprazole (Pantoprazole Sodium) 40 Mg Tab 40 Mg PO DAILY 01/06/17 Reported Breo Ellipta Inh (Fluticasone/Vilanterol) 100-25 Mcg/Act Inh 1 Puff INH DAILY PRN 01/06/17 Reported Use daily at the same time. Metformin (Metformin HCl) 1,000 Mg Tab 1,000 Mg PO DAILY 12/27/16 Reported With a meal Family History Father had prostate cancer, kidney issues, and htn Social History No tobacco, etoh, or illicit drug use. (JeffYin) Review of Systems Constitutional: COMPLAINS OF: Change in appetite Respiratory: DENIES: Cough, Shortness of breath Cardiovascular: COMPLAINS OF: Chest pain Gastrointestinal: COMPLAINS OF: Abdominal pain, Nausea, Difficulty Swallowing, Swelling of Abdomen, Heartburn, DENIES: Black stools, Bloody stools, Constipation, Diarrhea, Vomiting Musculoskeletal: DENIES: Joint pain Hematologic/lymphatic: DENIES: Bruising Neurologic: DENIES: Headache Psychiatric: DENIES: Confusion (JeffYin) GI Exam Vitals I&O Vital Signs Date Time Temp Pulse Resp B/P (MAP) Pulse Ox O2 Delivery O2 Flow Rate FiO2 07/03/17 08:01 61 07/03/17 08:00 98.2 60 19 132/61 (84) 94 07/03/17 05:24 97.7 50 20 115/69 (84) 94 07/03/17 00:54 97.5 59 20 123/70 (87) 92 07/02/17 22:04 98.0 52 18 150/73 (98) 96 07/02/17 18:00 86 07/02/17 16:00 98.4 56 16 137/65 (89) 94 07/02/17 16:00 86 07/02/17 14:35 16 07/02/17 14:00 86 I/O 07/02/17 07/02/17 07/02/17 07/03/17 07/03/17 07/03/17 07:00 15:00 23:00 07:00 15:00 23:00 Intake Total 960 ml 720 ml Output Total 600 ml Balance 960 ml 120 ml Intake Oral 960 ml 720 ml Output Urine Total 600 ml # Voids 3 1 # Bowel Movements 2 Imaging Last Impressions Aorta CTA 07/01/17 0000 Signed Impressions: Service Date/Time: Saturday, July 01, 2017 14:29 - CONCLUSION: No dissection , central pulmonary emboli or pericardial effusion. José Miguel Archer MD FACR Laboratory Test 07/02/17 20:00 Urine Color LIGHT-YELLOW Urine Turbidity HAZY Urine pH 6.0 Urine Specific [place] 1.009 Urine Protein NEG mg/dL Urine Glucose (UA) 70 mg/dL Urine Ketones NEG mg/dL Urine Occult Blood TRACE Urine Nitrite NEG Urine Bilirubin NEG Urine Urobilinogen LESS THAN 2.0 MG/DL Urine Leukocyte Esterase NEG Urine RBC 1 /hpf Urine WBC 1 /hpf Urine Squamous Epithelial Cells 2 /hpf Urine Bacteria FEW /hpf Microscopic Urinalysis Comment CULT NOT INDICATED Physical Examination HEENT: Normocephalic; atraumatic; no jaundice. CHEST: CTA CARDIAC: RRR ABDOMEN: Soft, nondistended, LUQ tenderness; no hepatosplenomegaly; bowel sounds are present in all four quadrants. EXTREMITIES: No clubbing, cyanosis, or edema. SKIN: Normal; no rash; no jaundice. MEDICAL ASSISTANT SUPERVISOR: No focal deficits; alert and oriented times three. (Yin JeffP) Assessment and Plan Plan ASSESSMENT: - Dysphagia, Odynophagia with hx of esophageal strictures. C/O difficulty with mostly solids, but liquid too. Seem to get hung up in upper esophagus, then again in the mid esophageal area- at which time she has discomfort with the food going down. Had EGD with dilatation in 2015 in [place]. Protonix. - LUQ pain with nausea, bloating, early satiety. C/P fullness/heaviness in luq with associated early satiety, nausea, bloating. CT abdomen and pelvis pending. Pt does have DM and states her sugars have been high recently. Will plan for EGD +/- Dilatation tomorrow, but if negative, consider GES to r/o gastroparesis. - GERD/Belching/Bloating. PPI. - Chest pain with hx CAD. 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 She started having more significant chest pain and underwent a CT angiogram of the aorta, which ruled out dissection and pulmonary embolism and was transferred to the unit for observation overnight. Her chest pain improved and she is now on the medical floor. - DM, Fibromyalgia, Hyperlipidemia, OA, Peripheral neuropathy, PVD per attending. - Hx pancreatic neuroendocrine tumor. s/p resection of part of pancreas/liver in 2014. Followed by Dr. Hubbard PLAN: - Plan for EGD +/- Dilatation - Obtain consents - NPO after MN - Cont. PPI/Carafate - Hold lovenox after MN - Await CT scan abdomen and pelvis (ordered) - If above negative, consider GES to r/o gastroparesis - Supportive care - Further recommendations to follow based on results of above - Pt seen and examined by Dr. Lara and myself and this note is written on his behalf (Yin Jeff) Physician Comments Seen and examined with Yin, plan as above. Further recommendations after endoscopic evaluation. Thank you. (Michael Lara MD) Yin Jeff Jul 03, 2017 12:51 Michael Lara MD Jul 03, 2017 13:03
[2017-07-03 13:41] LABS: BASOPHIL # 0.2 TH/MM3 (0-0.2); BASOPHIL % 1.3 % (0.0-2.0); EOSINOPHIL # 0.2 TH/MM3 (0-0.4); EOSINOPHIL % 1.4 % (0.0-4.0); HEMATOCRIT 38.3 % (35.0-46.0); HEMO FLAGS DIFF FINAL; LYMPH % 27.9 % (9.0-44.0); LYMPHOCYTE # 4.9 TH/MM3 (1.0-4.8); MEAN CELL VOLUME 91.2 FL (80.0-100.0); MEAN CORPUSCULAR HEMOGLOBIN 31.3 PG (27.0-34.0); MEAN CORPUSCULAR HGB CONC 34.3 % (32.0-36.0); MONO % 7.2 % (0.0-8.0); NEUT % 62.2 % (16.0-70.0); PLATELET COUNT 485 TH/MM3 (150-450); RED CELL DISTRIBUTION WIDTH 14.6 % (11.6-17.2); WHITE BLOOD COUNT 17.6 TH/MM3 (4.0-11.0)
[2017-07-03] MEDS: NYSTAT/DIPHENHY/LIDO MOUTHWASH (Adult) 120ML SWISH-SWAL SCH ×3 (14:11→22:58)
[2017-07-03] MEDS ORDERED: IOHEXOL 350 MG/ML 10 ML VIAL (for RAD DIAG) IVCONTRAST ONE (17:03)
--- NOTE | 2017-07-03 17:12 | RADRPT ---
EXAM DATE/TIME: 07/03/2017 16:43 [facility] COMPARISON: CTA THORACIC ABDOMINAL AORTA W 3D RECON, July 01, 2017, 14:29. INDICATIONS : Upper abdomen pain. IV CONTRAST: 100 cc Omnipaque 350 (iohexol) IV ORAL CONTRAST: Prescribed oral contrast ingested. RADIATION DOSE: 12.20 CTDIvol (mGy) MEDICAL HISTORY : Cardiovascular disease. Hypertension. SURGICAL HISTORY : Cholecystectomy. Appendectomy. ENCOUNTER: Initial ACUITY: 1 day PAIN SCALE: 8/10 LOCATION: Bilateral upper quadrant TECHNIQUE: Volumetric scanning of the abdomen and pelvis was performed. Using automated exposure control and ad justment of the mA and/or kV according to patient size, radiation dose was kept as low as reasonably achievable to obtain optimal diagnostic quality images. DICOM format image data is available electro nically for review and comparison. FINDINGS: LOWER LUNGS: Mild bibasilar atelectatic changes with no confluent infiltrate. LIVER: Homogeneous, but decreased density without lesion. There is no dilation of the biliary tree. Surgica l clips in the gallbladder fossa characteristic of prior cholecystectomy. SPLEEN: Absent PANCREAS: I believe the tail of the pancreas is surgically absent with some surgical clips at the ligated termi nus of the pancreatic body. KIDNEYS: Normal in size and shape. There is no mass, stone or hydronephrosis. Bilateral, benign-appearing dino al cortical cysts, one in each kidney. The largest on the left midpole measures approximately 2.1 cm in diameter ADRENAL GLANDS: Within normal limits. VASCULAR: There is no aortic aneurysm. BOWEL/MESENTERY: The stomach, small bowel, and colon demonstrate no acute abnormality. There is no free intraperitone al air or fluid. Severe diverticular disease of the sigmoid without diverticulitis. ABDOMINAL WALL: Air in the subcutaneous tissues probably represents subcutaneous injections. RETROPERITONEUM: There is no lymphadenopathy. BLADDER: No wall thickening or mass. REPRODUCTIVE: Patient appears to be status post hysterectomy. Multiple phleboliths in the deep pelvis. INGUINAL: There is no lymphadenopathy or hernia. MUSCULOSKELETAL: Within normal limits for patient age. CONCLUSION: 1. CT findings suggest surgical resection of the tail of the pancreas and the spleen. Please correlat e with clinical history. 2. There also appears to be a history of cholecystectomy and hysterectomy 3. Diffuse hepatic fatty infiltration. 4. 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 No acute intraperitoneal or pelvic pro cess to explain current clinical symptoms. Arpan Love MD on July 03, 2017 at 16:59 Board Certified Radiologist. This report was verified electronically.
[2017-07-03] MEDS: ENOXAPARIN SODIUM 40 MG/0.4 ML SYRINGE SQ SCH (17:41)
[2017-07-04] VITALS (8 sets, daily range): BP systolic 98–136; BP diastolic 50–66; PULSE 55–65; RESP 18–20; TEMP 97.4–98.8; O2SAT 93–95
[2017-07-04] MEDS: INSULIN ASPART SUPPLEMENTAL SCALE SQ SCH ×5 (01:00→21:00)
[2017-07-04] MEDS ORDERED: INSULIN HUMAN REGULAR 1,000 UNITS/10 ML VIAL SQ PRN (03:30)
[2017-07-04] MEDS ORDERED: SODIUM CHLORID 0.9% 500 ML IV PRN (03:30)
[2017-07-04] MEDS ORDERED: CHLORHEXIDINE GLUCONATE 2 % 1 PACK (2 CLOTHS) TOPICAL PRN (03:30)
[2017-07-04] MEDS ORDERED: METOPROLOL TARTRATE 25 MG TAB PO PRN (03:30)
[2017-07-04] MEDS ORDERED: LACTATED RINGER'S 1000 ML IV PRN (03:30)
[2017-07-04] MEDS ORDERED: POVIDONE IODINE 5% (ANTISEPSIS KIT) 4 APPLICATIONS EACH NARE PRN (03:30)
[2017-07-04] MEDS: LEVOTHYROXINE SODIUM 75 MCG TAB PO SCH (06:00)
[2017-07-04] MEDS: SUCRALFATE 1 GM/10 ML CUP PO SCH ×2 (08:00→21:01)
[2017-07-04] MEDS: CARVEDILOL 6.25 MG TAB PO SCH ×2 (08:43→21:02)
[2017-07-04] MEDS: DOCUSATE SODIUM 50 MG/SENNA 8.6 MG TAB PO SCH ×2 (09:00→21:02)
[2017-07-04] MEDS: DULoxetine HCl DR 30 MG CAP PO SCH (09:00)
[2017-07-04] MEDS: NYSTAT/DIPHENHY/LIDO MOUTHWASH (Adult) 120ML SWISH-SWAL SCH ×2 (09:00→21:01)
[2017-07-04] MEDS: PANTOPRAZOLE SOD 40 MG DELAYED RELEASE TAB PO SCH ×3 (09:00→21:02)
[2017-07-04] MEDS: ASPIRIN EC 81 MG TABEC PO SCH (09:00)
--- NOTE | 2017-07-04 09:20 | ECHRPT ---
Indication: CONCLUSIONS The left ventricular systolic function is hyperdynamic with an estimated ejection fraction in the ra nge of 65- 70%. Mild concentric left ventricular hypertrophy. Trace mitral valve regurgitation. BP: / HR: Rhythm: MEASUREMENTS (Male / Female) Normal Values Technical Quality:Good 2D ECHO LV Diastolic Diameter PLAX 4.0 cm 4.2 - 5.9 / 3.9 - 5.3 cm LV Systolic Diameter PLAX 2.8 cm IVS Diastolic Thickness 1.1 cm 0.6 - 1.0 / 0.6 - 0.9 cm LVPW Diastolic Thickness 1.1 cm 0.6 - 1.0 / 0.6 - 0.9 cm LV Relative Wall Thickness 0.5 LVOT Diameter 2.1 cm Aortic Root Diameter 2.7 cm LA Systolic Diameter LX 2.8 cm 3.0 - 4.0 / 2.7 - 3.8 cm M-MODE AV Cusp Separation MM 1.8 cm DOPPLER AV Peak Velocity 139.0 cm/s AV Peak Gradient 7.7 mmHg AV Mean Gradient 4.0 mmHg AV Velocity Time Integral 29.0 cm LVOT Peak Velocity 102.0 cm/s LVOT Peak Gradient 4.2 mmHg LVOT Velocity Time Integral 21.6 cm AV Area Cont Eq vti 2.6 cm AV Area Cont Eq pk 2.5 cm Mitral E Point Velocity 84.9 cm/s Mitral A Point Velocity 72.1 cm/s Mitral E to A Ratio 1.2 LV E' Lateral Velocity 13.0 cm/s Mitral E to LV E' Lateral Ratio 6.5 LV E' Septal Velocity 9.1 cm/s Mitral E to LV E' Septal Ratio 9.4 TR Peak Velocity 174.0 cm/s TR Peak Gradient 12.1 mmHg PV Peak Velocity 88.7 cm/s PV Peak Gradient 3.1 mmHg FINDINGS LEFT VENTRICLE The left ventricular systolic function is hyperdynamic with an estimated ejection fraction in the ra nge of 65- 70%. Normal left ventricular size. Mild concentric left ventricular hypertrophy. RIGHT VENTRICLE Normal right ventricular size and systolic function. LEFT ATRIUM The left atrial size is normal. RIGHT ATRIUM The right atrial size is normal. ATRIAL SEPTUM Normal atrial septal thickness. AORTA The aortic root and proximal ascending aorta are normal in size on limited imaging. MITRAL VALVE Structurally normal mitral valve. Trace mitral valve regurgitation. No mitral valve stenosis. AORTIC VALVE Trileaflet aortic valve. No aortic valve stenosis or regurgitation. TRICUSPID VALVE No tricuspid regurgitation. Structurally normal tricuspid valve. No tricuspid valve stenosis. PULMONARY VALVE The pulmonary valve is not well visualized. VESSELS The inferior vena cava is normal in size. PERICARDIUM No pericardial effusion. Ronal Aceves DO Edited by: TiVo CV Caramel Maker (Electronically Signed) Final Date:01 July 2017 18:58 Amended: 04 July 2017 09:19
--- NOTE | 2017-07-04 09:25 | HHI.PR ---
Subjective Remarks Went for EGD. Patient had biopsy of esophagus. Denies fever or chills. Patient still with nausea and abdominal pain. Abdominal pain is diffuse. Did not vomit. Says she had 2 bloody stools yesterday. Says she follows with Dr Hubbard oncology because has a h/o pancreatic cancer. Objective Vitals Vital Signs Date Time Temp Pulse Resp B/P (MAP) Pulse Ox O2 Delivery O2 Flow Rate FiO2 07/04/17 07:56 98.3 63 18 126/66 (86) 94 07/04/17 05:58 98.3 57 20 133/65 (87) 93 07/04/17 01:38 97.4 59 20 98/50 (66) 94 07/03/17 21:00 98.2 66 18 123/56 (78) 95 07/03/17 18:00 58 07/03/17 16:00 98.7 60 18 112/58 (76) 95 07/03/17 12:00 98.7 54 18 106/53 (70) 94 I/O 07/03/17 07/03/17 07/03/17 07/04/17 07/04/17 07/04/17 07:00 15:00 23:00 07:00 15:00 23:00 Intake Total 480 ml Balance 480 ml Intake Oral 480 ml # Voids 1 2 Result Diagram: 07/03/17 1307 07/02/17 0321 Imaging Last Impressions Abdomen/Pelvis CT 07/03/17 0000 Signed Impressions: Service Date/Time: Monday, July 03, 2017 16:43 - CONCLUSION: 1. CT findings suggest surgical resection of the tail of the pancreas and the spleen. Please correlate with clinical history. 2. There also appears to be a history of cholecystectomy and hysterectomy 3. Diffuse hepatic fatty infiltration. 4. 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 No acute intraperitoneal or pelvic process to explain current clinical symptoms. Arpan Love MD Aorta CTA 07/01/17 0000 Signed Impressions: Service Date/Time: Saturday, July 01, 2017 14:29 - CONCLUSION: No dissection , central pulmonary emboli or pericardial effusion. José Miguel Archer MD FACR Objective Remarks GENERAL: This is a well-nourished, well-developed patient, appears uncomfortable. CARDIOVASCULAR: Regular rate and rhythm without murmurs, gallops, or rubs. RESPIRATORY: Clear to auscultation. Breath sounds equal bilaterally. No wheezes , rales, or rhonchi. GASTROINTESTINAL: Abdomen soft, nondistended. epigastric tenderness to palpation.No hepato-splenomegaly, or palpable masses. No guarding. MUSCULOSKELETAL: Extremities without clubbing, cyanosis, or edema. No joint tenderness, effusion, or edema noted. No calf tenderness. Negative Homans sign bilaterally. NEUROLOGICAL: Awake and alert. Cranial nerves II through XII intact. Motor and sensory grossly within normal limits. Five out of 5 muscle strength in all muscle groups. Normal speech. A/P Assessment and Plan Atypical Chest pain -Aorta CTA negative for PE, dissection. 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 -Could be secondary to abdominal pain. Abdominal pain Odynophagia Nausea Constipation on CT Per patient h/o pancreatic cancer and follows with Dr Hubbard oncology -CT angiogram are slightly reviewed with no acute intra-abdominal finding -Laxatives ordered -could be gastric ulcer.Discontinue 3 times a day ibuprofen. Start PPI. Ingrown stable. -GI consultation. S/p EGD with esophageal dilation 07/04/17. Patient had biopsy of esophagus. -Will order CT abd /pelvis -Says she follows with Dr Hubbard oncology because has a h/o pancreatic cancer. Consult Dr Hubbard oncology. Hypertension. Blood pressure acceptable. Continue current medications. Leukocytosis -12.8 on admission, subsequently 18.2 on 07/02. Patient did receive methylprednisolone on admission secondary to shellfish allergy. Continue to monitor for signs of infection. Discussed Condition With patient, at bedside. Emi Jackson MD Jul 04, 2017 09:25
--- NOTE | 2017-07-04 10:10 | PD.CARD.PN ---
Subjective Subjective Remarks Weekend notes reviewed No chest pain/SOB Abdominal pain Objective Medications Current Medications Medications (Trade) Dose Ordered Sig/Darren Route Start Time Stop Time Status Last Admin (Cymbalta Dr) 30 mg DAILY PO 07/02/17 09:00 07/03/17 09:27 (Synthroid) 75 mcg DAILY@0600 PO 07/02/17 06:00 07/03/17 05:34 (Dilaudid Pf Inj) 1 mg Q4H PRN IV PUSH 07/01/17 16:00 07/02/17 10:18 (Ecotrin Ec) 81 mg DAILY PO 07/01/17 17:00 07/03/17 09:28 (Trandate Inj) 20 mg Q4H PRN IV PUSH 07/01/17 17:00 (NovoLOG SUPPLEMENTAL SCALE) 1 Q4H SQ 07/01/17 17:00 07/04/17 08:51 (Lovenox Inj) 40 mg Q24H SQ 07/01/17 18:00 Future Hold 07/03/17 17:41 (Coreg) 6.25 mg Q12HR PO 07/01/17 21:00 07/04/17 08:43 (Apresoline Inj) 20 mg Q4H PRN IV PUSH 07/01/17 18:00 (Protonix) 40 mg BID PO 07/02/17 21:00 07/03/17 22:49 (Paula-Colace) 1 tab BID PO 07/02/17 21:00 07/03/17 09:28 (Protonix) 40 mg DAILY PO 07/03/17 09:00 (Carafate Liq) 1 gm ACHS PO 07/02/17 21:00 07/03/17 22:49 (Zofran Inj) 4 mg Q6HR PRN IV PUSH 07/02/17 20:30 07/03/17 08:35 (Tylenol) 500 mg Q4H PRN PO 07/03/17 09:30 07/03/17 17:37 (Magic Mouthwash Adult Liq) 5 ml QID SWISH-SWAL 07/03/17 13:00 07/03/17 22:58 Lactated Ringer's 1,000 ml @ 30 mls/hr Q24H PRN IV 07/04/17 03:30 07/07/17 03:29 Sodium Chloride 500 ml @ 30 mls/hr [id number] PRN IV 07/04/17 03:30 07/07/17 03:29 (Lopressor) 25 mg BLENDING PLANT OPERATOR PRN PO 07/04/17 03:30 07/07/17 03:29 (Betadine 5% Antisepsis Kit) 1 applic BLENDING PLANT OPERATOR PRN EACH NARE 07/04/17 03:30 07/07/17 03:29 (Chlorhexidine 2% Cloth) 3 pack BLENDING PLANT OPERATOR PRN TOPICAL 07/04/17 03:30 07/07/17 03:29 (NovoLIN R INJ) See Protocol Table ... BLENDING PLANT OPERATOR PRN SQ 07/04/17 03:30 07/07/17 03:29 Vital Signs / I&O Vital Signs Date Time Temp Pulse Resp B/P (MAP) Pulse Ox O2 Delivery O2 Flow Rate FiO2 07/04/17 09:30 98.0 55 18 137/73 (94) 95 07/04/17 07:56 98.3 63 18 126/66 (86) 94 07/04/17 05:58 98.3 57 20 133/65 (87) 93 07/04/17 01:38 97.4 59 20 98/50 (66) 94 07/03/17 21:00 98.2 66 18 123/56 (78) 95 07/03/17 18:00 58 07/03/17 16:00 98.7 60 18 112/58 (76) 95 07/03/17 12:00 98.7 54 18 106/53 (70) 94 I/O 07/03/17 07/03/17 07/03/17 07/04/17 07/04/17 07/04/17 07:00 15:00 23:00 07:00 15:00 23:00 Intake Total 480 ml Balance 480 ml Intake Oral 480 ml # Voids 1 2 Physical Exam GENERAL: NAD, AAOx3 SKIN: Warm and dry. HEAD: Atraumatic. Normocephalic. EYES: Pupils equal and round. No scleral icterus. No injection or drainage. ENT: No nasal bleeding or discharge. Mucous membranes pink and moist. NECK: Trachea midline. No JVD. CARDIOVASCULAR: Regular rate and rhythm. RESPIRATORY: No accessory muscle use. Clear to auscultation. Breath sounds equal bilaterally. GASTROINTESTINAL: Abdomen soft, non-tender, nondistended. Hepatic and splenic margins not palpable. MUSCULOSKELETAL: Extremities without clubbing, cyanosis, or edema. No obvious deformities. NEUROLOGICAL: Awake and alert. No obvious cranial nerve deficits. Motor grossly within normal limits. Five out of 5 muscle strength in the arms and legs. Normal speech. PSYCHIATRIC: Appropriate mood and affect; insight and judgment normal. Laboratory Laboratory Tests Test 07/03/17 13:07 White Blood Count 17.6 TH/MM3 Red Blood Count 4.20 MIL/MM3 Hemoglobin 13.1 GM/DL Hematocrit 38.3 % Mean Corpuscular Volume 91.2 FL Mean Corpuscular Hemoglobin 31.3 PG Mean Corpuscular Hemoglobin Concent 34.3 % Red Cell Distribution Width 14.6 % Platelet Count 485 TH/MM3 Mean Platelet Volume 9.3 FL Neutrophils (%) (Auto) 62.2 % Lymphocytes (%) (Auto) 27.9 % Monocytes (%) (Auto) 7.2 % Eosinophils (%) (Auto) 1.4 % Basophils (%) (Auto) 1.3 % Neutrophils # (Auto) 11.0 TH/MM3 Lymphocytes # (Auto) 4.9 TH/MM3 Monocytes # (Auto) 1.3 TH/MM3 Eosinophils # (Auto) 0.2 TH/MM3 Basophils # (Auto) 0.2 TH/MM3 CBC Comment DIFF FINAL Differential Comment Assessment and Plan Problem List: (1) Anterior chest wall pain ICD Codes: R07.89 - Other chest pain Status: Acute (2) Family history of hypertension (3) BMI 33.0-33.9,adult ICD Codes: Z68.33 - Body mass index (BMI) 33.0-33.9, adult Assessment and Plan 1) Chest pain appears musculoskeletal 2) Accelerated HTN Now controlled on Coreg 3) Abdominal pain For EGD today 4) No further cardiovascular work up Ronal Aceves DO Jul 04, 2017 10:10
--- NOTE | 2017-07-04 10:30 | PD.PROCEDR ---
GI Procedure REFERRING PHYSICIAN Dr. Aceves PROCEDURE PERFORMED EGD with dilation and biopsy INDICATION FOR PROCEDURE Dysphagia, abdominal pain, reflux, chest pain PROCEDURE: The procedure, risks and benefits were discussed with Ms. Pritchard and informed consent was obtained. Anesthesia sedated her with Diprivan. She was placed in the left lateral decubitus position. EGD: The Pentax videoscope was introduced through the oropharynx and advanced to the second portion of the duodenum under direct visualization. Retroflexion was performed in the stomach. FINDINGS: Esophagus this appeared to be unremarkable and within normal limits this was dilated to size 17 Estonian savory dilator over a guidewire post dilatation view was unremarkable with no tears biopsies were taken from the distal esophagus to further evaluate the dysphagia no obvious esophagitis noted at this point Stomach there was patchy erythema in the antrum of unclear significance this was biopsied otherwise gastric mucosa was unremarkable Duodenum this was normal ESTIMATED BLOOD LOSS: None SPECIMENS REMOVED: Esophageal and antral biopsies COMPLICATIONS: None IMPRESSION: Gastritis PLAN: Await biopsies Continue PPI Kranthi Matos MD Jul 04, 2017 10:30
[2017-07-04] MEDS ORDERED: PROPOFOL 200 MG/20 ML AMP IV ONE (12:00)
[2017-07-04] MEDS ORDERED: LIDOCAINE HCL 1% PF 5 ML AMPULE OTHER ONE (12:00)
[2017-07-05] VITALS (8 sets, daily range): BP systolic 110–136; BP diastolic 56–70; PULSE 54–62; RESP 18–20; TEMP 97.8–98.7; O2SAT 91–94
[2017-07-05] MEDS: INSULIN ASPART SUPPLEMENTAL SCALE SQ SCH ×6 (00:22→20:28)
[2017-07-05] MEDS: LEVOTHYROXINE SODIUM 75 MCG TAB PO SCH (05:26)
--- NOTE | 2017-07-05 08:13 | MB ---
cc: AURORA DUBOIS M.D. DATE OF CONSULTATION July 05, [address] Jackson REASON FOR CONSULTATION Oncology is consulted to render opinion regarding patient with history of metastatic pancreatic neuroendocrine tumor with complaint of abdominal pain. HISTORY OF PRESENT ILLNESS The patient has very pleasant 62-year-old female admitted to the hospital for elective cardiac catheterization. During the procedure she was noted to have hypertension. She was given nitroglycerin drip and she developed hypotension. During this hospital stay she also complained of upper abdominal pain that started about three weeks ago. It is usually worse when she tries to eat. She also has been having dysphagia, no odynophagia. She had nausea. Denies any vomiting. She denies any constipation. She has some loose stools but she has been taking laxative. She has history of occasional bright red blood per rectum. She denies any dysuria or hematuria. She denies any chest pressure. She has dyspnea on exertion. Denies any flushing. PAST MEDICAL HISTORY 1. Pancreatic neuroendocrine tumor. 2. Diabetes mellitus. 3. Coronary disease. 4. Fibromyalgia. 5. Hyperlipidemia. 6. Osteoarthritis. 7. Hypertension. 8. Peripheral neuropathy. 9. Peripheral vascular disease. PAST SURGICAL HISTORY 1. Cardiac catheterization. 2. Distal pancreatectomy and splenectomy. 3. Resection of liver metastatic lesion. 4. Appendectomy. 5. Hysterectomy. 6. Cholecystectomy. FAMILY HISTORY Noncontributory. SOCIAL HISTORY No tobacco or alcohol use. REVIEW OF SYSTEMS CONSTITUTIONAL: Denies any weight loss, fever or chills. EYES: Negative. ENT: Negative. CARDIOVASCULAR: As above. RESPIRATORY: As above. GI: As above. : No dysuria or hematuria. MUSCULOSKELETAL: Negative. HEMATOLOGY: Negative. ENDOCRINE: Negative. DERMATOLOGY: Negative. PSYCHIATRIC: Slightly anxious. NEUROLOGIC: Negative. PHYSICAL EXAMINATION VITALS: Temperature 98.1, blood pressure 113/56, O2 saturation 94% on room air. GENERAL: She is alert and oriented x 3, in no acute distress. HEENT: Atraumatic, normocephalic. Pupils equal round reactive to light. Extraocular muscles intact. No scleral icterus. Oropharynx - Dry mucosa. NECK: No thyromegaly. No palpable mass. LYMPHATICS: No palpable cervical, clavicular, axillary or inguinal lymph nodes. CARDIOVASCULAR: Regular S1-S2. No murmur. LUNGS: Clear to auscultation bilaterally. ABDOMEN: Soft, tender in the upper abdomen, more prominent on the left side. Could not palpate liver or spleen. Positive bowel sounds. EXTREMITY EXAM: No cyanosis, no clubbing, no edema. No calf tenderness. BACK: No paravertebral tenderness. SKIN: No rash or petechiae. NEUROLOGIC EXAM: Nonfocal. LABORATORY DATA Reviewed. ASSESSMENT 1. Abdominal pain mostly in upper abdomen midepigastric area. This started about three weeks ago. She has nausea without vomiting. The pain usually is worse with food. She has some loose stool. She had mild dysphagia. She just had an upper endoscopy done yesterday which showed gastritis. The esophagus was dilated. Random biopsy was done and result is pending. She has CT of the abdomen and pelvis which showed only fatty infiltration and no acute changes. I think the abdominal pain is likely due to gastritis. The patient, however, is concerned that it could be pancreatic neuroendocrine tumor. She stated her disease was not seen on CT scan in the past. Will get MRI for further evaluation. 2. Metastatic pancreatic neuroendocrine tumor first diagnosed in 2004 when she presented with malaise and dizziness. She underwent distal pancreatectomy and splenectomy. In 2014 she was found to have a lesion in the liver and she underwent resection of the hepatic lesion which showed metastatic pancreatic neuroendocrine tumor similar to her pancreatic mass. At that time octreotide scan was positive for hepatic lesion. She had an MRI in January of 2017 which did not show any recurrent disease. We will repeat MRI as above. I am also going to check her Chromogranin A level. 3. Leukocytosis likely leukemoid reaction. We will repeat her CBC. 4. Coronary disease. She just had a cardiac catheterization which showed only mild coronary disease. 5. Diabetes mellitus. 6. Fibromyalgia. 7. Hyperlipidemia. 8. Osteoarthritis. 9. Peripheral neuropathy. RECOMMENDATIONS 1. Arrange for MRI of the abdomen and pelvis. 2. Check Chromogranin A level. 3. Monitor CBC. Thank you Dr. Jackson for asking me to see this patient. MD FLORENCIO Tovar/DARIO /7:45 AM /8:04 AM HECTOR
--- NOTE | 2017-07-05 08:28 | HHI.PR ---
Subjective Remarks In the chair still with nausea, no vomiting. No fever or chills. Still with diffuse abdominal pain. Patient also had diarrhea 1x last night but took laxatives. Says is less bloody. No chest pain, feels tired and deconditioned with sob, however she is sating well on room air. Objective Vitals Vital Signs Date Time Temp Pulse Resp B/P (MAP) Pulse Ox O2 Delivery O2 Flow Rate FiO2 07/05/17 08:04 98.7 62 19 110/63 (79) 91 07/05/17 04:00 98.1 57 18 113/56 (75) 94 07/05/17 00:00 97.8 56 18 118/58 (78) 94 07/04/17 20:00 98.1 60 18 120/62 (81) 94 07/04/17 19:00 65 07/04/17 16:24 98.8 59 18 136/66 (89) 94 07/04/17 11:46 98.1 55 18 120/64 (82) 95 07/04/17 10:26 98.0 56 16 107/56 (73) 96 07/04/17 09:30 98.0 55 18 137/73 (94) 95 I/O 07/04/17 07/04/17 07/04/17 07/05/17 07/05/17 07/05/17 07:00 15:00 23:00 07:00 15:00 23:00 Intake Total 300 ml 360 ml Balance 300 ml 360 ml Intake Oral 360 ml Other 300 ml # Voids 2 6 4 # Bowel Movements 1 Result Diagram: 07/03/17 1307 07/02/17 0321 Imaging Last Impressions Abdomen/Pelvis CT 07/03/17 0000 Signed Impressions: Service Date/Time: Monday, July 03, 2017 16:43 - CONCLUSION: 1. CT findings suggest surgical resection of the tail of the pancreas and the spleen. Please correlate with clinical history. 2. There also appears to be a history of cholecystectomy and hysterectomy 3. Diffuse hepatic fatty infiltration. 4. 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 No acute intraperitoneal or pelvic process to explain current clinical symptoms. Arpan Love MD Aorta CTA 07/01/17 0000 Signed Impressions: Service Date/Time: Saturday, July 01, 2017 14:29 - CONCLUSION: No dissection , central pulmonary emboli or pericardial effusion. José Miguel Archer MD FACR Objective Remarks GENERAL: This is a well-nourished, well-developed patient, appears uncomfortable. CARDIOVASCULAR: Regular rate and rhythm without murmurs, gallops, or rubs. RESPIRATORY: Clear to auscultation. Breath sounds equal bilaterally. No wheezes , rales, or rhonchi. GASTROINTESTINAL: Abdomen soft, nondistended. epigastric tenderness to palpation.No hepato-splenomegaly, or palpable masses. No guarding. MUSCULOSKELETAL: Extremities without clubbing, cyanosis, or edema. No joint tenderness, effusion, or edema noted. No calf tenderness. Negative Homans sign bilaterally. NEUROLOGICAL: Awake and alert. Cranial nerves II through XII intact. Motor and sensory grossly within normal limits. Five out of 5 muscle strength in all muscle groups. Normal speech. A/P Assessment and Plan Atypical Chest pain -Aorta CTA negative for PE, dissection. 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 -Could be secondary to abdominal pain. Abdominal pain Odynophagia Nausea Constipation on CT Per patient h/o pancreatic cancer and follows with Dr Hubbard oncology -CT angiogram are slightly reviewed with no acute intra-abdominal finding -Laxatives ordered -could be gastric ulcer.Discontinue 3 times a day ibuprofen. Start PPI. Ingrown stable. -GI consultation. S/p EGD with esophageal dilation 07/04/17. Patient had biopsy of esophagus. -Will order CT abd /pelvis -Says she follows with Dr Hubbard oncology because has a h/o pancreatic cancer. Consult Dr Hubbard oncology, appreciate recommendations. Plan for MRI abd/pelvis. Check Chromogranin A. Hypertension. Blood pressure acceptable. Continue current medications. Leukocytosis -12.8 on admission, subsequently 18.2 on 07/02. Patient did receive methylprednisolone on admission secondary to shellfish allergy. Continue to monitor for signs of infection. Discussed Condition With patient, nurse, at bedside. Emi Jackson MD Jul 05, 2017 08:28
[2017-07-05] MEDS: SUCRALFATE 1 GM/10 ML CUP PO SCH ×4 (08:38→20:28)
[2017-07-05] MEDS: PANTOPRAZOLE SOD 40 MG DELAYED RELEASE TAB PO SCH ×2 (08:39→20:28)
[2017-07-05] MEDS: DOCUSATE SODIUM 50 MG/SENNA 8.6 MG TAB PO SCH ×2 (08:39→20:29)
[2017-07-05] MEDS: DULoxetine HCl DR 30 MG CAP PO SCH (08:39)
[2017-07-05] MEDS: ASPIRIN EC 81 MG TABEC PO SCH (08:39)
[2017-07-05] MEDS: CARVEDILOL 6.25 MG TAB PO SCH ×2 (09:00→20:28)
[2017-07-05] MEDS: NYSTAT/DIPHENHY/LIDO MOUTHWASH (Adult) 120ML SWISH-SWAL SCH ×4 (09:00→20:28)
[2017-07-05] MEDS ORDERED: GADODIAMIDE PF 287 MG/ML 20 ML VIAL (for RAD MRI) IV PUSH ONE (10:30)
[2017-07-05] MEDS: ACETAMINOPHEN 500 MG CPLT PO PRN (12:47)
[2017-07-05 13:05] LABS: AUTOMATED NEUTROPHIL # 7.9 TH/MM3 (1.8-7.7); BASOPHIL # 0.1 TH/MM3 (0-0.2); EOSINOPHIL # 0.3 TH/MM3 (0-0.4); EOSINOPHIL % 2.2 % (0.0-4.0); HEMO FLAGS DIFF FINAL; LYMPH % 29.5 % (9.0-44.0); LYMPHOCYTE # 3.9 TH/MM3 (1.0-4.8); MEAN CELL VOLUME 90.9 FL (80.0-100.0); MEAN CORPUSCULAR HEMOGLOBIN 30.2 PG (27.0-34.0); MEAN CORPUSCULAR HGB CONC 33.2 % (32.0-36.0); MONO % 7.9 % (0.0-8.0); NEUT % 59.4 % (16.0-70.0); PLATELET COUNT 329 TH/MM3 (150-450); RED BLOOD COUNT 4.51 MIL/MM3 (4.00-5.30); RED CELL DISTRIBUTION WIDTH 14.3 % (11.6-17.2); WHITE BLOOD COUNT 13.3 TH/MM3 (4.0-11.0)
--- NOTE | 2017-07-05 13:07 | HHI.GIFU ---
Subjective Remarks States that 2 days ago, she was constipated and received an enema and after straining she passed a stool with blood coating the stool and a small amount of blood on the tissue. She has not had any other episodes. She does complain of severe lower abdominal pain while having a loose bowel movement this am. She reports that her last colonoscopy was in 2013 and she is wanting this repeated as inpatient. (TomerYin Allen MARGARITO) Objective Vitals I&O Vital Signs Date Time Temp Pulse Resp B/P (MAP) Pulse Ox O2 Delivery O2 Flow Rate FiO2 07/05/17 12:03 98.4 54 20 125/63 (83) 92 07/05/17 08:04 98.7 62 19 110/63 (79) 91 07/05/17 07:00 57 07/05/17 04:00 98.1 57 18 113/56 (75) 94 07/05/17 00:00 97.8 56 18 118/58 (78) 94 07/04/17 20:00 98.1 60 18 120/62 (81) 94 07/04/17 19:00 65 07/04/17 16:24 98.8 59 18 136/66 (89) 94 I/O 07/04/17 07/04/17 07/04/17 07/05/17 07/05/17 07/05/17 07:00 15:00 23:00 07:00 15:00 23:00 Intake Total 300 ml 360 ml Balance 300 ml 360 ml Intake Oral 360 ml Other 300 ml # Voids 2 6 4 # Bowel Movements 1 Imaging Last Impressions Abdomen/Pelvis CT 07/03/17 0000 Signed Impressions: Service Date/Time: Monday, July 03, 2017 16:43 - CONCLUSION: 1. CT findings suggest surgical resection of the tail of the pancreas and the spleen. Please correlate with clinical history. 2. There also appears to be a history of cholecystectomy and hysterectomy 3. Diffuse hepatic fatty infiltration. 4. 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 No acute intraperitoneal or pelvic process to explain current clinical symptoms. Arpan Love MD Aorta CTA 07/01/17 0000 Signed Impressions: Service Date/Time: Saturday, July 01, 2017 14:29 - CONCLUSION: No dissection , central pulmonary emboli or pericardial effusion. José Miguel Archer MD FACR Physical Exam HEENT: Normocephalic; atraumatic; no jaundice. CHEST: CTA CARDIAC: RRR ABDOMEN: Soft, nondistended, tenderness lower abdomen; no hepatosplenomegaly; bowel sounds are present in all four quadrants. EXTREMITIES: No clubbing, cyanosis, or edema. SKIN: Normal; no rash; no jaundice. EARTH SCIENCE PROFESSOR: No focal deficits; alert and oriented times three. (Yin Jeff) Assessment and Plan Plan ASSESSMENT: - Dysphagia, Odynophagia with hx of esophageal strictures. C/O difficulty with mostly solids, but liquid too. Seem to get hung up in upper esophagus, then again in the mid esophageal area- at which time she has discomfort with the food going down. Had EGD with dilatation in 2016 in [place]. EGD (07/04/17)----> Esophageal and antral biopsies. Pathology pending. Protonix. - LUQ pain with nausea, bloating, early satiety. C/P fullness/heaviness in luq with associated early satiety, nausea, bloating. CT abdomen and pelvis pending. Pt does have DM and states her sugars have been high recently. EGD as above. CT scan abdomen and pelvis with iv contrast (07/03/17)---> CT findings suggest surgical resection of the tial of the pancreas and the spleen. Please correlate with clinical history. There also appears to be a hx of cholecystectomy and hysterectomy. Diffuse hepatic fatty infilatration, diverticular disease of the sigmoid without diverticulitis. No acute intraperitoneal or pelvic process to explain current clinical symptoms. - Constipation. Add Miralax - BRBPR. Small amount of blood coating the stool and on the tissue a few days ago after straining and enema. Pt states she has not had a colonoscopy since 2013 and would like this done as inpatient. HH stable. - GERD/Belching/Bloating. PPI. - Chest pain with hx CAD. 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 She started having more significant chest pain and underwent a CT angiogram of the aorta, which ruled out dissection and pulmonary embolism and was transferred to the unit for observation overnight. Her chest pain improved and she is now on the medical floor. - DM, Fibromyalgia, Hyperlipidemia, OA, Peripheral neuropathy, PVD per attending. - Hx pancreatic neuroendocrine tumor. s/p resection of part of pancreas/liver in 2014. Followed by Dr. Hubbard. MRI ordered. Chromogranin A pending. PLAN: - Plan for Colonoscopy in am - Obtain consents - Clear liquids - NPO after MN - Golytely prep - Cont. PPI/Carafate - MRI, Chromagranin pending. - Supportive care - Further recommendations to follow based on results of above - Pt seen and examined by Dr. Matos and myself and this note is written on his behalf (Yin Jeff) Physician Comments Patient seen and examined Agree with above Continue with current supportive care Monitor labs Plan for colonoscopy tomorrow (Kranthi Matos MD) Yin Jeff Jul 05, 2017 13:07 Kranthi Matos MD Jul 05, 2017 22:39
--- NOTE | 2017-07-05 15:51 | RADRPT ---
EXAM DATE/TIME: 07/05/2017 13:38 [facility] COMPARISON: CT ABDOMEN & PELVIS W CONTRAST, July 03, 2017, 16:43. INDICATIONS : Abdominal pain. CONTRAST: 17 cc Omniscan (gadodiamide) IV MEDICAL HISTORY : Hypertension. Diabetes mellitus type 2. SURGICAL HISTORY : Hysterectomy. Liver,pancreas and spleen resection. ENCOUNTER: Initial ACUITY: 3 day PAIN SCORE: 3/10 LOCATION: abdomen TECHNIQUE: Multiplanar, multisequence magnetic resonance imaging of the abdomen was performed without and with i ntravenous contrast. FINDINGS: LIVER: Considerable signal dropout is seen on the opposed phase sequence. No mass or ductal dilatation. Port al vein is patent. Gallbladder is surgically absent. BILIARY: There is no intra- or extra-hepatic biliary ductal dilatation. Gallbladder is surgically absent. SPLEEN: Surgically absent. PANCREAS: The tail of the pancreas is surgically absent. The remaining pancreas is unremarkable. ADRENALS: Within normal limits. KIDNEYS: Normal size and signal intensity. There is no hydronephrosis or mass. Small cysts are seen bilateral ly. The largest is on the left measuring 2.3 cm. Layering proteinaceous material is seen involving th is cyst. No enhancing mural nodule. OTHER: Aorta is nonaneurysmal. There is no lymphadenopathy. CONCLUSION: 1. No acute abnormality. 2. Hepatic steatosis. 3. Prior splenectomy, partial pancreatectomy, and cholecystectomy. 4. Small renal cysts. The 2.3 cm cyst involving the left kidney shows a small amount of layering prot einaceous material. Law Kasper Jr., MD on July 05, 2017 at 15:42 Board Certified Radiologist. This report was verified electronically.
[2017-07-05] MEDS ORDERED: PEG (High)/E-LYTE SOLN 4000 ML BTL PO ONE (16:00)
[2017-07-05] MEDS ORDERED: LACTATED RINGER'S 1000 ML IV PRN (17:30)
[2017-07-05] MEDS ORDERED: SODIUM CHLORID 0.9% 500 ML IV PRN (17:30)
[2017-07-05] MEDS ORDERED: POVIDONE IODINE 5% (ANTISEPSIS KIT) 4 APPLICATIONS EACH NARE PRN (17:30)
[2017-07-05] MEDS ORDERED: METOPROLOL TARTRATE 25 MG TAB PO PRN (17:30)
[2017-07-05] MEDS ORDERED: CHLORHEXIDINE GLUCONATE 2 % 1 PACK (2 CLOTHS) TOPICAL PRN (17:30)
--- NOTE | 2017-07-05 17:56 | PD.CARD.PN ---
Subjective Subjective Remarks No events overnight No chest pain/SOB Abdominal pain Objective Medications Current Medications Medications (Trade) Dose Ordered Sig/Darren Route Start Time Stop Time Status Last Admin (Cymbalta Dr) 30 mg DAILY PO 07/02/17 09:00 07/05/17 08:39 (Synthroid) 75 mcg DAILY@0600 PO 07/02/17 06:00 07/05/17 05:26 (Dilaudid Pf Inj) 1 mg Q4H PRN IV PUSH 07/01/17 16:00 07/02/17 10:18 (Ecotrin Ec) 81 mg DAILY PO 07/01/17 17:00 07/05/17 08:39 (Trandate Inj) 20 mg Q4H PRN IV PUSH 07/01/17 17:00 (NovoLOG SUPPLEMENTAL SCALE) 1 Q4H SQ 07/01/17 17:00 07/05/17 17:00 (Lovenox Inj) 40 mg Q24H SQ 07/01/17 18:00 Future Hold 07/03/17 17:41 (Coreg) 6.25 mg Q12HR PO 07/01/17 21:00 07/04/17 21:02 (Apresoline Inj) 20 mg Q4H PRN IV PUSH 07/01/17 18:00 (Protonix) 40 mg BID PO 07/02/17 21:00 07/05/17 08:39 (Paula-Colace) 1 tab BID PO 07/02/17 21:00 07/05/17 08:39 (Carafate Liq) 1 gm ACHS PO 07/02/17 21:00 07/05/17 15:55 (Zofran Inj) 4 mg Q6HR PRN IV PUSH 07/02/17 20:30 07/03/17 08:35 (Tylenol) 500 mg Q4H PRN PO 07/03/17 09:30 07/05/17 12:47 (Magic Mouthwash Adult Liq) 5 ml QID SWISH-SWAL 07/03/17 13:00 07/05/17 17:04 (Miralax) 17 gm DAILY PO 07/06/17 09:00 Lactated Ringer's 1,000 ml @ 30 mls/hr Q24H PRN IV 07/05/17 17:30 07/08/17 17:29 Sodium Chloride 500 ml @ 30 mls/hr [id number] PRN IV 07/05/17 17:30 07/08/17 17:29 (Lopressor) 25 mg TRACK WALKER PRN PO 07/05/17 17:30 07/08/17 17:29 (Betadine 5% Antisepsis Kit) 1 applic TRACK WALKER PRN EACH NARE 07/05/17 17:30 07/08/17 17:29 (Chlorhexidine 2% Cloth) 3 pack TRACK WALKER PRN TOPICAL 07/05/17 17:30 07/08/17 17:29 Vital Signs / I&O Vital Signs Date Time Temp Pulse Resp B/P (MAP) Pulse Ox O2 Delivery O2 Flow Rate FiO2 07/05/17 16:31 98.2 57 20 136/70 (92) 94 07/05/17 12:03 98.4 54 20 125/63 (83) 92 07/05/17 08:04 98.7 62 19 110/63 (79) 91 07/05/17 07:00 57 07/05/17 04:00 98.1 57 18 113/56 (75) 94 07/05/17 00:00 97.8 56 18 118/58 (78) 94 07/04/17 20:00 98.1 60 18 120/62 (81) 94 07/04/17 19:00 65 I/O 07/04/17 07/04/17 07/04/17 07/05/17 07/05/17 07/05/17 06:59 14:59 22:59 06:59 14:59 22:59 Intake Total 300 ml 360 ml Balance 300 ml 360 ml Intake Oral 360 ml Other 300 ml # Voids 2 6 4 # Bowel Movements 1 Physical Exam GENERAL: NAD, AAOx3 SKIN: Warm and dry. HEAD: Atraumatic. Normocephalic. EYES: Pupils equal and round. No scleral icterus. No injection or drainage. ENT: No nasal bleeding or discharge. Mucous membranes pink and moist. NECK: Trachea midline. No JVD. CARDIOVASCULAR: Regular rate and rhythm. RESPIRATORY: No accessory muscle use. Clear to auscultation. Breath sounds equal bilaterally. GASTROINTESTINAL: Abdomen soft, non-tender, nondistended. Hepatic and splenic margins not palpable. MUSCULOSKELETAL: Extremities without clubbing, cyanosis, or edema. No obvious deformities. NEUROLOGICAL: Awake and alert. No obvious cranial nerve deficits. Motor grossly within normal limits. Five out of 5 muscle strength in the arms and legs. Normal speech. PSYCHIATRIC: Appropriate mood and affect; insight and judgment normal. Laboratory Laboratory Tests Test 07/05/17 12:30 White Blood Count 13.3 TH/MM3 Red Blood Count 4.51 MIL/MM3 Hemoglobin 13.6 GM/DL Hematocrit 41.0 % Mean Corpuscular Volume 90.9 FL Mean Corpuscular Hemoglobin 30.2 PG Mean Corpuscular Hemoglobin Concent 33.2 % Red Cell Distribution Width 14.3 % Platelet Count 329 TH/MM3 Mean Platelet Volume 8.1 FL Neutrophils (%) (Auto) 59.4 % Lymphocytes (%) (Auto) 29.5 % Monocytes (%) (Auto) 7.9 % Eosinophils (%) (Auto) 2.2 % Basophils (%) (Auto) 1.0 % Neutrophils # (Auto) 7.9 TH/MM3 Lymphocytes # (Auto) 3.9 TH/MM3 Monocytes # (Auto) 1.1 TH/MM3 Eosinophils # (Auto) 0.3 TH/MM3 Basophils # (Auto) 0.1 TH/MM3 CBC Comment DIFF FINAL Differential Comment Imaging Last 24 hours Impressions Abdomen MRI 07/05/17 0000 Signed Impressions: Service Date/Time: Wednesday, July 05, 2017 13:38 - CONCLUSION: 1. No acute abnormality. 2. Hepatic steatosis. 3. Prior splenectomy, partial pancreatectomy , and cholecystectomy. 4. Small renal cysts. The 2.3 cm cyst involving the left kidney shows a small amount of layering proteinaceous material. Law Kasper Jr., MD Assessment and Plan Problem List: (1) Anterior chest wall pain ICD Codes: R07.89 - Other chest pain Status: Acute (2) Family history of hypertension (3) BMI 33.0-33.9,adult ICD Codes: Z68.33 - Body mass index (BMI) 33.0-33.9, adult Assessment and Plan 1) Chest pain appears musculoskeletal 2) Accelerated HTN Now controlled on Coreg 3) Abdominal pain For Cscope in the morning 4) No further cardiovascular work up 5) Will see PRN, call with questions Ronal Aceves DO Jul 05, 2017 17:56
[2017-07-06] VITALS (8 sets, daily range): BP systolic 103–154; BP diastolic 56–70; PULSE 53–77; RESP 17–18; TEMP 98.3–98.8; O2SAT 92–94
[2017-07-06] MEDS: INSULIN ASPART SUPPLEMENTAL SCALE SQ SCH ×6 (01:00→21:00)
[2017-07-06] MEDS: LEVOTHYROXINE SODIUM 75 MCG TAB PO SCH (06:00)
[2017-07-06] MEDS: SUCRALFATE 1 GM/10 ML CUP PO SCH ×4 (08:00→20:53)
--- NOTE | 2017-07-06 08:12 | PD.ONC.PN ---
Subjective Subjective Remarks Awaiting colonoscopy, c/o bwoel prep. still has upper abdominal pain. Objective Data Date Time Temp Pulse Resp B/P (MAP) Pulse Ox O2 Delivery O2 Flow Rate FiO2 07/06/17 07:48 98.5 60 18 133/60 (84) 93 07/06/17 04:00 98.4 62 18 154/70 (98) 92 07/06/17 00:00 98.3 65 18 103/56 (72) 93 07/05/17 20:00 97.8 54 18 132/63 (86) 93 07/05/17 19:00 56 07/05/17 16:31 98.2 57 20 136/70 (92) 94 07/05/17 12:03 98.4 54 20 125/63 (83) 92 Result Diagram: 07/05/17 1230 07/02/17 0321 Laboratory Results Laboratory Tests Test 07/05/17 12:30 White Blood Count 13.3 TH/MM3 Red Blood Count 4.51 MIL/MM3 Hemoglobin 13.6 GM/DL Hematocrit 41.0 % Mean Corpuscular Volume 90.9 FL Mean Corpuscular Hemoglobin 30.2 PG Mean Corpuscular Hemoglobin Concent 33.2 % Red Cell Distribution Width 14.3 % Platelet Count 329 TH/MM3 Mean Platelet Volume 8.1 FL Neutrophils (%) (Auto) 59.4 % Lymphocytes (%) (Auto) 29.5 % Monocytes (%) (Auto) 7.9 % Eosinophils (%) (Auto) 2.2 % Basophils (%) (Auto) 1.0 % Neutrophils # (Auto) 7.9 TH/MM3 Lymphocytes # (Auto) 3.9 TH/MM3 Monocytes # (Auto) 1.1 TH/MM3 Eosinophils # (Auto) 0.3 TH/MM3 Basophils # (Auto) 0.1 TH/MM3 CBC Comment DIFF FINAL Differential Comment Administered Medications Medications (Trade) Dose Ordered Sig/Darren Route PRN Reason Start Time Stop Time Status Last Admin Dose Admin Duloxetine HCl (Cymbalta Dr) 30 mg DAILY PO 07/02/17 09:00 07/05/17 08:39 Levothyroxine Sodium (Synthroid) 75 mcg DAILY@0600 PO 07/02/17 06:00 07/05/17 05:26 Hydromorphone HCl (Dilaudid Pf Inj) 1 mg Q4H PRN IV PUSH pain 5-10 07/01/17 16:00 07/02/17 10:18 Aspirin (Ecotrin Ec) 81 mg DAILY PO 07/01/17 17:00 07/05/17 08:39 Insulin Aspart (NovoLOG SUPPLEMENTAL SCALE) 1 Q4H SQ 07/01/17 17:00 07/05/17 17:00 Enoxaparin Sodium (Lovenox Inj) 40 mg Q24H SQ 07/01/17 18:00 Future Hold 07/03/17 17:41 Carvedilol (Coreg) 6.25 mg Q12HR PO 07/01/17 21:00 07/05/17 20:28 Pantoprazole Sodium (Protonix) 40 mg BID PO 07/02/17 21:00 07/05/17 20:28 Senna/Docusate Sodium (Paula-Colace) 1 tab BID PO 07/02/17 21:00 07/05/17 08:39 Sucralfate (Carafate Liq) 1 gm ACHS PO 07/02/17 21:00 07/05/17 20:28 Ondansetron HCl (Zofran Inj) 4 mg Q6HR PRN IV PUSH NAUSEA 07/02/17 20:30 07/03/17 08:35 Acetaminophen (Tylenol) 500 mg Q4H PRN PO pain 1-10, fever>100 07/03/17 09:30 07/05/17 12:47 Multi-Ingredient Mouthwash/Gargle (Magic Mouthwash Adult Liq) 5 ml QID SWISH-SWAL 07/03/17 13:00 07/05/17 20:28 Objective Remarks GENERAL: Well-nourished, well-developed patient. SKIN: Warm and dry. HEAD: Normocephalic. EYES: No scleral icterus. No injection or drainage. NECK: Supple, trachea midline. No JVD or lymphadenopathy. LYMPHATIC: No adenopathy. CARDIOVASCULAR: Regular rate and rhythm without murmurs. RESPIRATORY: Breath sounds equal bilaterally. No accessory muscle use. GASTROINTESTINAL: Abdomen soft, slight tenderness upper abdomen, nondistended. EXTREMITIES: No cyanosis, or edema. MUSCULOSKELETAL: Adequate muscle tone. NEUROLOGICAL: No obvious focal deficit. Awake, alert, and oriented x3. PSYCHIATRIC: Appropriate mood and affect; insight and judgment normal. Assessment/Plan Assessment 1. Abdominal pain mostly in upper abdomen midepigastric area. This started about three weeks ago. She has nausea without vomiting. The pain usually is worse with food. She has some loose stool. She had mild dysphagia. She just had an upper endoscopy done yesterday which showed gastritis. The esophagus was dilated. Random biopsy was done and result is pending. She has CT of the abdomen and pelvis which showed only fatty infiltration and no acute changes. I think the abdominal pain is likely due to gastritis. The patient, however, is concerned that it could be pancreatic neuroendocrine tumor. She stated her disease was not seen on CT scan in the past. 07/06 MRI abdomen showed no acute changes and no evidence of recurrent disease. 2. Metastatic pancreatic neuroendocrine tumor first diagnosed in 2004 when she presented with malaise and dizziness. She underwent distal pancreatectomy and splenectomy. In 2014 she was found to have a lesion in the liver and she underwent resection of the hepatic lesion which showed metastatic pancreatic neuroendocrine tumor similar to her pancreatic mass. At that time octreotide scan was positive for hepatic lesion. She had an MRI in January of 2017 which did not show any recurrent disease. 3. Leukocytosis likely leukemoid reaction. Monitor CBC. 4. Coronary disease. She just had a cardiac catheterization which showed only mild coronary disease. 5. Diabetes mellitus. Plan Plan: 1. Reviewed MRI with patient. 2. Chromogranin A level pending. 3. Monitor CBC. 4. Await colonoscopy. Jarocho Hubbard MD Jul 06, 2017 08:12
[2017-07-06] MEDS: POLYETHYLENE GLYCOL 17 GM PKG PO SCH (08:48)
[2017-07-06] MEDS: DOCUSATE SODIUM 50 MG/SENNA 8.6 MG TAB PO SCH ×2 (08:48→20:53)
[2017-07-06] MEDS: NYSTAT/DIPHENHY/LIDO MOUTHWASH (Adult) 120ML SWISH-SWAL SCH ×4 (08:55→20:57)
[2017-07-06] MEDS: DULoxetine HCl DR 30 MG CAP PO SCH (09:00)
[2017-07-06] MEDS: ASPIRIN EC 81 MG TABEC PO SCH (09:00)
[2017-07-06] MEDS: CARVEDILOL 6.25 MG TAB PO SCH ×2 (09:00→20:53)
[2017-07-06] MEDS: PANTOPRAZOLE SOD 40 MG DELAYED RELEASE TAB PO SCH ×2 (09:00→20:53)
--- NOTE | 2017-07-06 14:19 | PD.PROCEDR ---
GI Procedure REFERRING PHYSICIAN Dr. Aceves PROCEDURE PERFORMED Colonoscopy INDICATION FOR PROCEDURE Rectal bleeding PROCEDURE: The procedure, risks and benefits were discussed with Ms. Pritchard and informed consent was obtained. Anesthesia sedated her with Diprivan. She was placed in the left lateral decubitus position. Colonoscopy: The Pentax videoscope was introduced through the rectum and advanced to cecum where the ileocecal valve and appendiceal orifice were identified. Retroflexion was performed in the rectum. Colonic prep was fair FINDINGS: Colonic withdrawal time greater than 6 minutes as the scope was slowly withdrawn colonic mucosa was carefully inspected this was noted to be unremarkable and within normal limits all the way through the patient was noted to have scattered diverticulosis throughout the colon with mild to moderate diverticulosis of the sigmoid retroflexion in the rectum did reveal grade 2 internal hemorrhoids rectal examination was otherwise unremarkable ESTIMATED BLOOD LOSS: None SPECIMENS REMOVED: None COMPLICATIONS: None IMPRESSION: Diverticulosis Internal hemorrhoids PLAN: High-fiber diet Colonoscopy in 5 years May consider hemorrhoidal banding as needed Follow-up with GI post discharge Okay for discharge from a GI standpoint Kranthi Matos MD Jul 06, 2017 14:19
--- NOTE | 2017-07-06 16:09 | HHI.PR ---
Subjective Remarks The patient was seen earlier today. She is some nausea and abdominal pain epigastric and left upper quadrant. Did not vomit. Upper colonoscopy today. Denies chest pain, palpitations. Objective Vitals Vital Signs Date Time Temp Pulse Resp B/P (MAP) Pulse Ox O2 Delivery O2 Flow Rate FiO2 07/06/17 15:47 98.3 53 18 133/69 (90) 94 07/06/17 14:30 98.0 52 20 126/63 (84) 98 07/06/17 14:17 98.1 54 20 114/56 (75) 95 07/06/17 12:05 98.4 64 17 132/63 (86) 93 07/06/17 08:45 62 07/06/17 07:48 98.5 60 18 133/60 (84) 93 07/06/17 04:00 98.4 62 18 154/70 (98) 92 07/06/17 00:00 98.3 65 18 103/56 (72) 93 07/05/17 20:00 97.8 54 18 132/63 (86) 93 07/05/17 19:00 56 07/05/17 16:31 98.2 57 20 136/70 (92) 94 I/O 07/05/17 07/05/17 07/05/17 07/06/17 07/06/17 07/06/17 07:00 15:00 23:00 07:00 15:00 23:00 Intake Total 1000 ml Balance 1000 ml IV Total 500 ml Other 500 ml # Voids 4 2 3 # Bowel Movements 1 3 Result Diagram: 07/05/17 1230 07/02/17 0321 Imaging Last Impressions Abdomen MRI 07/05/17 0000 Signed Impressions: Service Date/Time: Wednesday, July 05, 2017 13:38 - CONCLUSION: 1. No acute abnormality. 2. Hepatic steatosis. 3. Prior splenectomy, partial pancreatectomy , and cholecystectomy. 4. Small renal cysts. The 2.3 cm cyst involving the left kidney shows a small amount of layering proteinaceous material. Law Kasper Jr., MD Abdomen/Pelvis CT 07/03/17 0000 Signed Impressions: Service Date/Time: Monday, July 03, 2017 16:43 - CONCLUSION: 1. CT findings suggest surgical resection of the tail of the pancreas and the spleen. Please correlate with clinical history. 2. There also appears to be a history of cholecystectomy and hysterectomy 3. Diffuse hepatic fatty infiltration. 4. 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 No acute intraperitoneal or pelvic process to explain current clinical symptoms. Arpan Love MD Aorta CTA 07/01/17 0000 Signed Impressions: Service Date/Time: Saturday, July 01, 2017 14:29 - CONCLUSION: No dissection , central pulmonary emboli or pericardial effusion. José Miguel Archer MD FACR Objective Remarks GENERAL: This is a well-nourished, well-developed patient, appears uncomfortable. CARDIOVASCULAR: Regular rate and rhythm without murmurs, gallops, or rubs. RESPIRATORY: Clear to auscultation. Breath sounds equal bilaterally. No wheezes , rales, or rhonchi. GASTROINTESTINAL: Abdomen soft, nondistended. epigastric tenderness to palpation.No hepato-splenomegaly, or palpable masses. No guarding. MUSCULOSKELETAL: Extremities without clubbing, cyanosis, or edema. No joint tenderness, effusion, or edema noted. No calf tenderness. Negative Homans sign bilaterally. NEUROLOGICAL: Awake and alert. Cranial nerves II through XII intact. Motor and sensory grossly within normal limits. Five out of 5 muscle strength in all muscle groups. Normal speech. A/P Assessment and Plan Atypical Chest pain -Aorta CTA negative for PE, dissection. 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 -Could be secondary to abdominal pain. Abdominal pain Odynophagia Nausea Constipation on CT Per patient h/o pancreatic cancer and follows with Dr Hubbard oncology -CT angiogram are slightly reviewed with no acute intra-abdominal finding -Laxatives ordered -could be gastric ulcer.Discontinue 3 times a day ibuprofen. Start PPI. Ingrown stable. -GI consultation. S/p EGD with esophageal dilation 07/04/17. Patient had biopsy of esophagus. -Will order CT abd /pelvis -Says she follows with Dr Hubbard oncology because has a h/o pancreatic cancer. Consult Dr Hubbard oncology, appreciate recommendations. MRI abd/pelvis. Check Chromogranin A. Hem onc ff - plan for colonoscopy 07/06/17 Hypertension. Blood pressure acceptable. Continue current medications. Leukocytosis -12.8 on admission, subsequently 18.2 on 07/02. Patient did receive methylprednisolone on admission secondary to shellfish allergy. Continue to monitor for signs of infection. Discussed Condition With patient, nurse, at bedside. DC plan : plan for colonoscopy 07/06/17. DC when improved and cleared by consultants. Emi Jackson MD Jul 06, 2017 16:09
[2017-07-06] MEDS ORDERED: WHEA1POW PO (16:13)
--- NOTE | 2017-07-06 16:13 | HHI.DS ---
Discharge Summary Admission Date Jul 01, 2017 at 14:18 Discharge Date: Jul 07, 2017 Admitting Diagnosis Last Impressions Abdomen MRI 07/05/17 0000 Signed Impressions: Service Date/Time: Wednesday, July 05, 2017 13:38 - CONCLUSION: 1. No acute abnormality. 2. Hepatic steatosis. 3. Prior splenectomy, partial pancreatectomy , and cholecystectomy. 4. Small renal cysts. The 2.3 cm cyst involving the left kidney shows a small amount of layering proteinaceous material. Law Kasper Jr., MD Abdomen/Pelvis CT 07/03/17 0000 Signed Impressions: Service Date/Time: Monday, July 03, 2017 16:43 - CONCLUSION: 1. CT findings suggest surgical resection of the tail of the pancreas and the spleen. Please correlate with clinical history. 2. There also appears to be a history of cholecystectomy and hysterectomy 3. Diffuse hepatic fatty infiltration. 4. 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 No acute intraperitoneal or pelvic process to explain current clinical symptoms. Arpan Love MD Aorta CTA 07/01/17 0000 Signed Impressions: Service Date/Time: Saturday, July 01, 2017 14:29 - CONCLUSION: No dissection , central pulmonary emboli or pericardial effusion. José Miguel Archer MD FACR (1) Abdominal pain ICD Code: R10.9 - Unspecified abdominal pain (2) Nausea ICD Code: R11.0 - Nausea (3) H/O pancreatic cancer ICD Code: Z85.07 - Personal history of malignant neoplasm of pancreas (4) Anterior chest wall pain ICD Code: R07.89 - Other chest pain Status: Acute (5) BMI 33.0-33.9,adult ICD Code: Z68.33 - Body mass index (BMI) 33.0-33.9, adult (6) Family history of hypertension ICD Code: Z82.49 - Family history of hypertension Procedures By GI Dr Matos : EGD with esophageal dilation, biopsy colonoscopy Brief History - From Admission Patient reports that chest pain present on admission has resolved. She reports subsequently experiencing abdominal discomfort described as epigastric sharp and constant which is present for the past day. She also reports intermittent nausea, poor appetite which is currently resolved. She has been taking ibuprofen 3 times daily. Denies any hematochezia or hematemesis. She does report some constipation, with most recent bowel movement several days ago.. CBC/BMP: 07/05/17 1230 07/02/17 0321 Significant Findings Laboratory Tests Test 07/05/17 12:30 White Blood Count 13.3 TH/MM3 (4.0-11.0) Neutrophils # (Auto) 7.9 TH/MM3 (1.8-7.7) Monocytes # (Auto) 1.1 TH/MM3 (0-0.9) Imaging Last Impressions Abdomen MRI 07/05/17 0000 Signed Impressions: Service Date/Time: Wednesday, July 05, 2017 13:38 - CONCLUSION: 1. No acute abnormality. 2. Hepatic steatosis. 3. Prior splenectomy, partial pancreatectomy , and cholecystectomy. 4. Small renal cysts. The 2.3 cm cyst involving the left kidney shows a small amount of layering proteinaceous material. Law Kasper Jr., MD Abdomen/Pelvis CT 07/03/17 0000 Signed Impressions: Service Date/Time: Monday, July 03, 2017 16:43 - CONCLUSION: 1. CT findings suggest surgical resection of the tail of the pancreas and the spleen. Please correlate with clinical history. 2. There also appears to be a history of cholecystectomy and hysterectomy 3. Diffuse hepatic fatty infiltration. 4. 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 No acute intraperitoneal or pelvic process to explain current clinical symptoms. Arpan Love MD Aorta CTA 07/01/17 0000 Signed Impressions: Service Date/Time: Saturday, July 01, 2017 14:29 - CONCLUSION: No dissection , central pulmonary emboli or pericardial effusion. José Miguel Archer MD FACR PE at Discharge GENERAL: This is a well-nourished, well-developed patient, appears uncomfortable. CARDIOVASCULAR: Regular rate and rhythm without murmurs, gallops, or rubs. RESPIRATORY: Clear to auscultation. Breath sounds equal bilaterally. No wheezes , rales, or rhonchi. GASTROINTESTINAL: Abdomen soft, nondistended. epigastric tenderness to palpation.No hepato-splenomegaly, or palpable masses. No guarding. MUSCULOSKELETAL: Extremities without clubbing, cyanosis, or edema. No joint tenderness, effusion, or edema noted. No calf tenderness. Negative Homans sign bilaterally. NEUROLOGICAL: Awake and alert. Cranial nerves II through XII intact. Motor and sensory grossly within normal limits. Five out of 5 muscle strength in all muscle groups. Normal speech. Pt update on day of discharge She is in the chair. Feels much better. No abdominal pain. No nausea or vomiting. No diarrhea or constipation. No bleeding from rectum. Clear for discharge by consultants for follow-up as outpatient Hospital Course Atypical Chest pain -Aorta CTA negative for PE, dissection. 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 -Could be secondary to abdominal pain. Abdominal pain Odynophagia Nausea Constipation on CT Per patient h/o pancreatic cancer and follows with Dr Hubbard oncology -CT angiogram are slightly reviewed with no acute intra-abdominal finding -Laxatives ordered -could be gastric ulcer.Discontinue 3 times a day ibuprofen. Start PPI. Ingrown stable. -GI consultation. S/p EGD with esophageal dilation 07/04/17. Patient had biopsy of esophagus. -Will order CT abd /pelvis -Says she follows with Dr Hubbard oncology because has a h/o pancreatic cancer. Consult Dr Hubbard oncology, appreciate recommendations. MRI abd/pelvis. Check Chromogranin A. Hem onc ff -S/p colonoscopy 07/06/17 with hemorrhoids may consider banding , to follwo up as OP with GI. arlen at SD Hypertension. Blood pressure acceptable. Continue current medications. Leukocytosis -12.8 on admission, subsequently 18.2 on 07/02. Patient did receive methylprednisolone on admission secondary to shellfish allergy. Continue to monitor for signs of infection. Discussed Condition With patient, nurse, at bedside. Improved, tolerates food. Cleared by consultants. SD in stable condition to follow up as OP with PCP and consultants. Pt Condition on Discharge: Stable Discharge Disposition: Disch w/ Home Health Serv Discharge Time: > 30 minutes Discharge Instructions DIET: Follow Instructions for: Heart Healthy Diet Activities you can perform: Regular-No Restrictions Follow up Referrals: Gastroenterology - 2 Weeks Oncology - 1 Week with Jarocho Hubbard MD PCP Follow-up - 2-3 Days New Medications: Wheat Dextrin (Benefiber On The Go) 3 Gram/4 Gram Pow 3 GM PO BID for Nutritional Supplement for 30 Days, CAN Continued Medications: Albuterol 8.5 GM Inh (Proair Hfa 8.5 GM Inh) 90 Mcg/Act Aer 2 PUFF INH Q4-6H PRN for SHORTNESS OF BREATH, #1 INHALER 0 Refills 108 mcg/actuation Calcium Carbonate-Cholecalciferol (Calcium 500 +D) 500-400 Mg-Unit Tab 1 TAB PO DAILY for Calcium Supplement, TAB 0 Refills Cobalamine Combinations (Vitamin W29-Gsqoa Acid) 500-400 Mcg Tab 1 TAB PO DAILY for Nutritional Supplement, TAB [address] (Duloxetine DR) 30 Mg Capdr 30 MG PO DAILY, #30 CAP 0 Refills Fluticasone-Vilanterol Inh (Breo Ellipta Inh) 100-25 Mcg/Act Inh 1 PUFF INH DAILY PRN for SHORTNESS OF BREATH, #1 INHALER 0 Refills Use daily at the same time. Gabapentin (Gabapentin) 300 Mg Cap 300 MG PO BID, #60 CAP 0 Refills Levothyroxine (Levothyroxine) 75 Mcg Tab 75 MCG PO DAILY for Thyroid, #30 TAB 0 Refills Loratadine (Claritin) 10 Mg Cap 10 MG PO DAILY for Allergy Management, CAP 0 Refills Metformin (Metformin) 1,000 Mg Tab 1000 MG PO DAILY for Blood Sugar Management, #30 TAB 0 Refills With a meal Metoprolol Succinate ER 24 HR (Metoprolol Succinate ER 24 HR) 25 Mg Tab 25 MG PO DAILY, #30 TAB 0 Refills Niacin (Niacin) 500 Mg Tab 500 MG PO DAILY for Cholesterol Management, #30 TAB 0 Refills Nitroglycerin SL (Nitroglycerin SL) 0.4 Mg Subl 0.4 MG SL DIRECTED PRN for CHEST PAIN, #100 TAB.SL 0 Refills ONE TABLET UNDER THE TONGUE NEEDED FOR CHEST PAIN, MAY REPEAT EVERY FIVE MINUTES FOR A TOTAL OF 3 DOSES OR CALL 911 IF NO RELIEF Pantoprazole (Pantoprazole) 40 Mg Tab 40 MG PO DAILY for Reflux, #30 TAB 0 Refills Tiotropium Inh (Spiriva Respimat Inh) 1.25 Mcg/Act Aero 2 PUFF INH DAILY for Asthma Management, #1 INHALER 0 Refills 1.25 mcg = 1 inhalation [benadryl] () Unknown Dose P-ARTICULR DAILY Emi Jackson MD Jul 06, 2017 16:13
[2017-07-06] MEDS: ACETAMINOPHEN 500 MG CPLT PO PRN (16:43)
[2017-07-06] MEDS ORDERED: DO NOT ADM ANY ANTICOAGULANT DRUGS PRN (16:45)
[2017-07-07] MEDS: INSULIN ASPART SUPPLEMENTAL SCALE SQ SCH ×3 (00:40→09:12)
[2017-07-07 01:44] VITALS: BP 127/58; PULSE 63; RESP 18; TEMP 98.7; O2SAT 94
[2017-07-07] MEDS: LEVOTHYROXINE SODIUM 75 MCG TAB PO SCH (05:14)
[2017-07-07 06:23] VITALS: BP 120/70; PULSE 58; RESP 18; TEMP 97.6; O2SAT 94
--- NOTE | 2017-07-07 07:50 | PD.ONC.PN ---
Subjective Subjective Remarks Abdominal pain slightly better. Ordering breakfast. Objective Data Date Time Temp Pulse Resp B/P (MAP) Pulse Ox O2 Delivery O2 Flow Rate FiO2 07/07/17 06:23 97.6 58 18 120/70 (87) 94 07/07/17 01:44 98.7 63 18 127/58 (81) 94 07/07/17 00:25 21 07/06/17 21:11 98.8 62 18 125/59 (81) 93 07/06/17 20:00 77 07/06/17 15:47 98.3 53 18 133/69 (90) 94 07/06/17 14:30 98.0 52 20 126/63 (84) 98 07/06/17 14:17 98.1 54 20 114/56 (75) 95 07/06/17 12:05 98.4 64 17 132/63 (86) 93 07/06/17 08:45 62 07/06/17 07:48 98.5 60 18 133/60 (84) 93 Result Diagram: 07/05/17 1230 Laboratory Results Laboratory Tests Test 07/07/17 06:40 Administered Medications Medications (Trade) Dose Ordered Sig/Darren Route PRN Reason Start Time Stop Time Status Last Admin Dose Admin Duloxetine HCl (Cymbalta Dr) 30 mg DAILY PO 07/02/17 09:00 07/05/17 08:39 Levothyroxine Sodium (Synthroid) 75 mcg DAILY@0600 PO 07/02/17 06:00 07/07/17 05:14 Hydromorphone HCl (Dilaudid Pf Inj) 1 mg Q4H PRN IV PUSH pain 5-10 07/01/17 16:00 07/02/17 10:18 Aspirin (Ecotrin Ec) 81 mg DAILY PO 07/01/17 17:00 07/05/17 08:39 Insulin Aspart (NovoLOG SUPPLEMENTAL SCALE) 1 Q4H SQ 07/01/17 17:00 07/07/17 05:27 Enoxaparin Sodium (Lovenox Inj) 40 mg Q24H SQ 07/01/17 18:00 Future Hold 07/03/17 17:41 Carvedilol (Coreg) 6.25 mg Q12HR PO 07/01/17 21:00 07/06/17 20:53 Pantoprazole Sodium (Protonix) 40 mg BID PO 07/02/17 21:00 07/06/17 20:53 Senna/Docusate Sodium (Paula-Colace) 1 tab BID PO 07/02/17 21:00 07/05/17 08:39 Sucralfate (Carafate Liq) 1 gm ACHS PO 07/02/17 21:00 07/06/17 20:53 Ondansetron HCl (Zofran Inj) 4 mg Q6HR PRN IV PUSH NAUSEA 07/02/17 20:30 07/03/17 08:35 Acetaminophen (Tylenol) 500 mg Q4H PRN PO pain 1-10, fever>100 07/03/17 09:30 07/06/17 16:43 Multi-Ingredient Mouthwash/Gargle (Magic Mouthwash Adult Liq) 5 ml QID SWISH-SWAL 07/03/17 13:00 07/06/17 20:57 Lactated Ringer's 1,000 ml @ 30 mls/hr Q24H PRN IV SEE LABEL COMMENTS 07/05/17 17:30 07/08/17 17:29 07/06/17 12:25 Objective Remarks GENERAL: Well-nourished, well-developed patient. SKIN: Warm and dry. HEAD: Normocephalic. EYES: No scleral icterus. No injection or drainage. NECK: Supple, trachea midline. No JVD or lymphadenopathy. LYMPHATIC: No adenopathy. CARDIOVASCULAR: Regular rate and rhythm without murmurs. RESPIRATORY: Breath sounds equal bilaterally. No accessory muscle use. GASTROINTESTINAL: Abdomen soft, mild-tenderness, nondistended. EXTREMITIES: No cyanosis, or edema. MUSCULOSKELETAL: Adequate muscle tone. NEUROLOGICAL: No obvious focal deficit. Awake, alert, and oriented x3. PSYCHIATRIC: Appropriate mood and affect; insight and judgment normal. Assessment/Plan Assessment 1. Abdominal pain mostly in upper abdomen midepigastric area. This started about three weeks ago. She has nausea without vomiting. The pain usually is worse with food. She has some loose stool. She had mild dysphagia. She just had an upper endoscopy done yesterday which showed gastritis. The esophagus was dilated. Random biopsy was done and result is pending. She has CT of the abdomen and pelvis which showed only fatty infiltration and no acute changes. I think the abdominal pain is likely due to gastritis. The patient, however, is concerned that it could be pancreatic neuroendocrine tumor. She stated her disease was not seen on CT scan in the past. 07/06 MRI abdomen showed no acute changes and no evidence of recurrent disease. 07/07 Colonoscopy +hemorrhoid and diverticulosis. 2. Metastatic pancreatic neuroendocrine tumor first diagnosed in 2004 when she presented with malaise and dizziness. She underwent distal pancreatectomy and splenectomy. In 2014 she was found to have a lesion in the liver and she underwent resection of the hepatic lesion which showed metastatic pancreatic neuroendocrine tumor similar to her pancreatic mass. At that time octreotide scan was positive for hepatic lesion. She had an MRI in January of 2017 which did not show any recurrent disease. Chromogranin A normal. 3. Leukocytosis likely leukemoid reaction. Monitor CBC. 4. Coronary disease. She just had a cardiac catheterization which showed only mild coronary disease. 5. Diabetes mellitus. Plan Plan: 1. Reviewed labs with pt. No evidence of recurrent neuroendocrine tumor. Can be d/c from oncology standpoint. Jarocho Hubbard MD Jul 07, 2017 07:50
[2017-07-07 07:51] LABS: AUTOMATED NEUTROPHIL # 6.8 TH/MM3 (1.8-7.7); BASOPHIL # 0.2 TH/MM3 (0-0.2); BASOPHIL % 1.4 % (0.0-2.0); EOSINOPHIL # 0.4 TH/MM3 (0-0.4); EOSINOPHIL % 3.7 % (0.0-4.0); HEMATOCRIT 41.2 % (35.0-46.0); HEMO FLAGS DIFF FINAL; LYMPH % 28.6 % (9.0-44.0); LYMPHOCYTE # 3.3 TH/MM3 (1.0-4.8); MEAN CELL VOLUME 90.7 FL (80.0-100.0); MEAN CORPUSCULAR HEMOGLOBIN 30.4 PG (27.0-34.0); MEAN CORPUSCULAR HGB CONC 33.5 % (32.0-36.0); MONO % 8.1 % (0.0-8.0); NEUT % 58.2 % (16.0-70.0); PLATELET COUNT 327 TH/MM3 (150-450); RED BLOOD COUNT 4.55 MIL/MM3 (4.00-5.30); RED CELL DISTRIBUTION WIDTH 14.6 % (11.6-17.2); WHITE BLOOD COUNT 11.6 TH/MM3 (4.0-11.0)
[2017-07-07] MEDS: SUCRALFATE 1 GM/10 ML CUP PO SCH ×2 (08:00→12:00)
[2017-07-07 08:13] LABS: BICARBONATE 27.7 MEQ/L (21.0-32.0); POTASSIUM 3.6 MEQ/L (3.5-5.1)
[2017-07-07] MEDS: DULoxetine HCl DR 30 MG CAP PO SCH (09:00)
[2017-07-07] MEDS: ASPIRIN EC 81 MG TABEC PO SCH (09:00)
[2017-07-07] MEDS: DOCUSATE SODIUM 50 MG/SENNA 8.6 MG TAB PO SCH (09:00)
[2017-07-07] MEDS: POLYETHYLENE GLYCOL 17 GM PKG PO SCH (09:00)
[2017-07-07 09:08] VITALS: BP 133/63; PULSE 57; RESP 18; TEMP 97.9; O2SAT 93
[2017-07-07] MEDS: NYSTAT/DIPHENHY/LIDO MOUTHWASH (Adult) 120ML SWISH-SWAL SCH (09:09)
[2017-07-07] MEDS: CARVEDILOL 6.25 MG TAB PO SCH (09:14)
[2017-07-07] MEDS: PANTOPRAZOLE SOD 40 MG DELAYED RELEASE TAB PO SCH (09:14)
[2017-07-07 11:44] VITALS: PULSE 63
--- NOTE | 2017-07-07 11:49 | HHI.GIFU ---
Subjective Remarks Pt OOB and in chair, fully clothed, reports she is supposed to be discharged today. Tolerating diet. Denies nausea, vomiting, difficulty swallowing. Mild upper abdominal pain, states improved. (iYn Jeff) Objective Vitals I&O Vital Signs Date Time Temp Pulse Resp B/P (MAP) Pulse Ox O2 Delivery O2 Flow Rate FiO2 07/07/17 09:08 97.9 57 18 133/63 (86) 93 07/07/17 06:23 97.6 58 18 120/70 (87) 94 07/07/17 01:44 98.7 63 18 127/58 (81) 94 07/07/17 00:25 21 07/06/17 21:11 98.8 62 18 125/59 (81) 93 07/06/17 20:00 77 07/06/17 15:47 98.3 53 18 133/69 (90) 94 07/06/17 14:30 98.0 52 20 126/63 (84) 98 07/06/17 14:17 98.1 54 20 114/56 (75) 95 07/06/17 12:05 98.4 64 17 132/63 (86) 93 I/O 07/06/17 07/06/17 07/06/17 07/07/17 07/07/17 07/07/17 07:00 15:00 23:00 07:00 15:00 23:00 Intake Total 1000 ml Balance 1000 ml IV Total 500 ml Other 500 ml # Voids 3 Laboratory Laboratory Tests Test 07/07/17 06:40 White Blood Count 11.6 Red Blood Count 4.55 Hemoglobin 13.8 Hematocrit 41.2 Mean Corpuscular Volume 90.7 Mean Corpuscular Hemoglobin 30.4 Mean Corpuscular Hemoglobin Concent 33.5 Red Cell Distribution Width 14.6 Platelet Count 327 Mean Platelet Volume 8.5 Neutrophils (%) (Auto) 58.2 Lymphocytes (%) (Auto) 28.6 Monocytes (%) (Auto) 8.1 Eosinophils (%) (Auto) 3.7 Basophils (%) (Auto) 1.4 Neutrophils # (Auto) 6.8 Lymphocytes # (Auto) 3.3 Monocytes # (Auto) 0.9 Eosinophils # (Auto) 0.4 Basophils # (Auto) 0.2 CBC Comment DIFF FINAL Differential Comment Blood Urea Nitrogen 11 Creatinine 0.75 Random Glucose 185 Calcium Level 8.6 Sodium Level 138 Potassium Level 3.6 Chloride Level 102 Carbon Dioxide Level 27.7 Anion Gap 8 Estimat Glomerular Filtration Rate 79 Imaging Last Impressions Abdomen MRI 07/05/17 0000 Signed Impressions: Service Date/Time: Wednesday, July 05, 2017 13:38 - CONCLUSION: 1. No acute abnormality. 2. Hepatic steatosis. 3. Prior splenectomy, partial pancreatectomy , and cholecystectomy. 4. Small renal cysts. The 2.3 cm cyst involving the left kidney shows a small amount of layering proteinaceous material. Law Kasper Jr., MD Abdomen/Pelvis CT 07/03/17 0000 Signed Impressions: Service Date/Time: Monday, July 03, 2017 16:43 - CONCLUSION: 1. CT findings suggest surgical resection of the tail of the pancreas and the spleen. Please correlate with clinical history. 2. There also appears to be a history of cholecystectomy and hysterectomy 3. Diffuse hepatic fatty infiltration. 4. 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 No acute intraperitoneal or pelvic process to explain current clinical symptoms. Arpan Love MD Aorta CTA 07/01/17 0000 Signed Impressions: Service Date/Time: Saturday, July 01, 2017 14:29 - CONCLUSION: No dissection , central pulmonary emboli or pericardial effusion. José Miguel Archer MD FACR Physical Exam HEENT: Normocephalic; atraumatic; no jaundice. CHEST: CTA CARDIAC: RRR ABDOMEN: Soft, nondistended, mild tenderness LUQ; no hepatosplenomegaly; bowel sounds are present in all four quadrants. EXTREMITIES: No clubbing, cyanosis, or edema. SKIN: Normal; no rash; no jaundice. LITHOGRAPHIC PLATE [employer]KER: No focal deficits; alert and oriented times three. (Yin Jeff) Assessment and Plan Plan ASSESSMENT: - Dysphagia, Odynophagia with hx of esophageal strictures. Improved. EGD (07/04)----> Esophageal and antral biopsies. Pathology --> findings suggestive of reflux and chronic mild chronic gastritis. Protonix. - LUQ pain with nausea, bloating, early satiety. Improving, some mild upper LUQ tenderness (07/03/17)---> CT findings suggest surgical resection of the trial of the pancreas and the spleen. Please correlate with clinical history. There also appears to be a hx of cholecystectomy and hysterectomy. Diffuse hepatic fatty infilatration, diverticular disease of the sigmoid without diverticulitis. No acute intraperitoneal or pelvic process to explain current clinical symptoms. MRI abdomen W&W/O contrast (07/05/17) --> No acute abnormality. Hepatic steatosis. Prior splenectomy, partial pancreatectomy, and cholecystectomy. Small renal cysts. The 2.3 cm cyst involving the left kidney shows a small amount of layering proteinaceous material. - Constipation. Add Miralax. Continue at home - BRBPR. Small amount of blood coating the stool and on the tissue a few days ago after straining and enema. HH stable 13.8/41.2. Colonoscopy (07/06/17) --> diverticulosis and internal hemorrhoids. Recommended high fiber diet, repeat colonosocpy in 5 years, and may consider hemorrhoidal banding as needed. - GERD/Belching/Bloating. PPI. - Chest pain with hx CAD. 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 She started having more significant chest pain and underwent a CT angiogram of the aorta, which ruled out dissection and pulmonary embolism and was transferred to the unit for observation overnight. Her chest pain improved and she is now on the medical floor. - DM, Fibromyalgia, Hyperlipidemia, OA, Peripheral neuropathy, PVD per attending. - Hx pancreatic neuroendocrine tumor. s/p resection of part of pancreas/liver in 2014. Followed by Dr. Hubbard. Chromogranin A 61.0 PLAN: - OK to discharge from GI standpoint - Continue PPI at home - High fiber diet - Follow up with GI in 2 weeks - High fiber diet at home - Banding for hemorrhoids in the future if symptoms return - Pt seen and examined by Dr. Matos and myself and this note is written on his behalf (Yin Jeff) Physician Comments Patient seen and examined Agree with above Continue with current supportive care Monitor labs Follow-up with GI post discharge (Kranthi Matos MD) Yin Jeff Jul 07, 2017 11:49 Kranthi Matos MD Jul 07, 2017 19:06
--- NOTE | 2017-07-07 13:17 | HHI.FF ---
Face to Face Verification Diagnosis: (1) H/O pancreatic cancer (2) Abdominal pain (3) Nausea (4) Anterior chest wall pain (5) BMI 33.0-33.9,adult (6) Family history of hypertension Home Health Nursing Order: Medical education Medication education-adverse effect Nursing assessment with vital signs I have seen patient Lillie Pritchard on 07/07/17. My clinical findings support the need for the requested home health care services because: Ltd mobility - disease progression I certify that my clinical findings support that this patient is homebound because: Post-op weakness Emi Jackson MD Jul 07, 2017 13:17
== END 2017-07-07 12:14 | disposition home health service (06) | DRG 287 ==
LOC: HDOC 08:02 → HDIC 08:02 → HIMN 14:18 → HDOC 14:59 → N05A 07-02 19:15
PROVIDERS: ADMIT Hospitalist; ATTEND Hospitalist
PROC: B2111ZZ Fluoroscopy of Multiple Coronary Arteries using Low Osmolar Contrast (ICD-10-PCS; 2017-07-01)
PROC: 4A023N7 Measurement of Cardiac Sampling and Pressure, Left Heart, Percutaneous Approach (ICD-10-PCS; principal; 2017-07-01 10:00)
PROC: 0DB38ZX Excision of Lower Esophagus, Via Natural or Artificial Opening Endoscopic, Diagnostic (ICD-10-PCS; 2017-07-04)
PROC: 0DB68ZX Excision of Stomach, Via Natural or Artificial Opening Endoscopic, Diagnostic (ICD-10-PCS; 2017-07-04)
PROC: 0D758ZZ Dilation of Esophagus, Via Natural or Artificial Opening Endoscopic (ICD-10-PCS; 2017-07-04)
PROC: 0DJD8ZZ Inspection of Lower Intestinal Tract, Via Natural or Artificial Opening Endoscopic (ICD-10-PCS; 2017-07-06)
DX: R07.89 Other chest pain (principal); E11.42 Type 2 diabetes mellitus with diabetic polyneuropathy; Q24.5 Malformation of coronary vessels; E11.51 Type 2 diabetes mellitus with diabetic peripheral angiopathy without gangrene; R13.10 Dysphagia, unspecified; N28.1 Cyst of kidney, acquired; K92.1 Melena; K29.70 Gastritis, unspecified, without bleeding; I16.0 Hypertensive urgency; E66.9 Obesity, unspecified; I25.10 Atherosclerotic heart disease of native coronary artery without angina pectoris; K59.00 Constipation, unspecified; I10 Essential (primary) hypertension; M79.7 Fibromyalgia; M19.90 Unspecified osteoarthritis, unspecified site; K76.0 Fatty (change of) liver, not elsewhere classified; I95.2 Hypotension due to drugs; K57.30 Diverticulosis of large intestine without perforation or abscess without bleeding; K64.1 Second degree hemorrhoids; E03.9 Hypothyroidism, unspecified; D72.823 Leukemoid reaction; E78.00 Pure hypercholesterolemia, unspecified; J44.9 Chronic obstructive pulmonary disease, unspecified; K21.9 Gastro-esophageal reflux disease without esophagitis; Z68.33 Body mass index [BMI] 33.0-33.9, adult; Z79.84 Long term (current) use of oral hypoglycemic drugs; Z91.013 Allergy to seafood; Z90.710 Acquired absence of both cervix and uterus; Z90.81 Acquired absence of spleen; Z90.49 Acquired absence of other specified parts of digestive tract; Z85.05 Personal history of malignant neoplasm of liver; Z82.49 Family history of ischemic heart disease and other diseases of the circulatory system; Z85.07 Personal history of malignant neoplasm of pancreas; T46.3X5A Adverse effect of coronary vasodilators, initial encounter
CPT/HCPCS: 71275; 74174; 74177; 74183; 80048; 80076; 81001; 82150; 82550; 82948; 83690; 84443; 84484; 85025; 85610; 85730; 86316; 88305; 88312; 93005; 93306; 93458; 99152; 99153; J1170; A9579; C1769; C1893; J0171; J0360; J1200; J1644; J1650; J1815; J2250; J2405; J2930; J3010; J7030; J7120; Q9963; Q9967